=== PATIENT | female | born 1945 | race Caucasian/White ===

== ENCOUNTER 2018-06-03 01:03 | Inpatient (IN) | payer MEDICARE ==
[2018-06-03] MEDS ORDERED: cefTRIAXone\\ROCEPHIN 1 GM VIAL ONE (03:34)
[2018-06-03] MEDS ORDERED: Senokot S 8.6-50 MG TAB PO PRN (03:35)
[2018-06-03] MEDS ORDERED: Levofloxacin 500 mg/D5W 100 ml Premix Bag ONE (03:40)
--- NOTE | 2018-06-03 04:19 | HP ---
CHIEF COMPLAINT: Shortness of breath. HISTORY OF PRESENT ILLNESS: The patient is a 73-year-old female with a history of hypothyroidism, hypertension, COPD, and some sort of leukemia. 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 The patient stated that for the past week she has been short of breath. She actually followed up with her [facility] doctor who had given her a script for Levaquin, however, she took one dose of it and got very weak, so she stopped taking the antibiotic. The patient states that she had subjective fevers. She states that she has been having some shortness of breath on exertion and also cough. She states that her cough has been productive. Denies any chest pain or chest pressure. She states that she kind of stays around in her home due to her immunocompromised state. The patient does not use home oxygen. PAST MEDICAL HISTORY: 1. History of hypertension. 2. COPD. 3. Leukemia. PAST SURGICAL HISTORY: Cholecystectomy, hysterectomy, tubal ligation, left knee repair. SOCIAL HISTORY: She is a former smoker. Denies any alcohol use or drug use currently. She is nonsmoker currently and she is a full code, lives with her family. FAMILY HISTORY: Uncle had some sort of cancer. No history of heart disease or strokes. REVIEW OF SYSTEMS: All negative except for the ones mentioned above in the HPI. PHYSICAL EXAMINATION: VITAL SIGNS: She is afebrile at 98.6. She is 98% initially on room air, respirations are 18, blood pressure 157/82, pulse was 100. GENERAL: She is awake, alert, and oriented x3. Does not appear in any distress. HEENT: Normocephalic, atraumatic. No lymphadenopathy noted. Pupils are equal and reactive to light. LUNGS: Clear to auscultation. She does have some wheezing on her upper lung area with some productive cough noted. CV: S1, S2 present. No murmurs, rubs, or gallops. ABDOMEN: Soft and nontender. Bowel sounds present x2. EXTREMITIES: She does have mild +1 lower extremity edema. Pedal pulses are present x2. NEUROLOGIC: Neurovascular khan, no focal deficit. SKIN: No cuts, lesions, or bruises noted. LABORATORY RESULTS: As of the following; WBCs of 9.2, hemoglobin of 7.3, hematocrit of 22.0. Her platelets are 239. Chemistry; sodium of 136, potassium of 3.6, BUN of 19, creatinine 1.20. Her BNP was 156. Troponins were negative. Her chest x-ray did not indicate any acute abnormalities. ASSESSMENT AND PLAN: The patient is a 73-year-old female who presents to the hospital with shortness of breath. 1. Shortness of breath. This could be secondary to upper respiratory tract infection, most likely bronchitis versus chronic obstructive pulmonary disease exacerbation versus a combination of bronchitis and anemia versus pulmonary emboli. I look through the ER records, the patient was never hypoxic. She was always 95% to 96% on room air. She does however has a very productive cough and she has only slight wheezing in her upper respiratory lung area. I will start her on some DuoNeb. I will treat her prophylactically with antibiotics. She was on Levaquin orally. I believe the dose was too high for this patient. I will start her on 500 daily IV. The patient has allergies to penicillin. She states that she has hives. I do not want to jeopardize her respiratory status since she has a lot of things going on. I will start her on Levaquin. I will also give her some Tessalon Perles for her cough. Her flu swab was negative. I will hold off on the steroids for now. My probability for PE is very low. However, if required, she may have a V/Q scan. 2. Leukocytosis. This is most likely secondary to her underlying malignancy. The patient does not know what type of malignancy she has. 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 3. Anemia. The patient's H and H is significantly low at 7.3. I will type and screen her. We will continue to follow along. If her H and H does drop, she might require some blood transfusion. 4. Hypothyroidism. We will continue her home medications. 5. Deep venous thrombosis prophylaxis. We will put the patient on subcu Lovenox. Job ID: [id number]
[2018-06-03 04:37] VITALS: BMI 27.6
[2018-06-03] MEDS ORDERED: Ondansetron ODT 4 MG TAB PO SCH (05:45)
[2018-06-03] MEDS: Levothyroxine Sodium 25 MCG TAB PO SCH (06:02)
[2018-06-03] MEDS: Enoxaparin Sodium 40 MG/0.4 ML SYRINGE SC SCH (08:53)
[2018-06-03] MEDS: Metoprolol Tartrate 25 MG TAB PO SCH (08:53)
--- NOTE | 2018-06-03 10:39 | PDOC.PN ---
- Subjective Encounter Start Date: 06/03/18 Encounter Start Time: 10:25 Subjective: f/u for dyspnea and suspected bronchitis and ? COPD. Receiving -: Levaquin, Duonebs and O2 via NC. Feels a little better today. - Objective Resuscitation Status - Order Detail: 06/03/18 03:35 Resuscitation Status Routine Resuscitation Status: FULL: Full Resuscitation MAR Reviewed: Yes Vital Signs & Weight: Vital Signs (12 hours) Temp Pulse Resp BP Pulse Ox 06/03/18 08:09 97.8 F 97 20 141/65 H 98 06/03/18 08:00 98 06/03/18 07:27 95 16 97 06/03/18 05:16 99 06/03/18 04:37 98.1 F 93 20 162/76 H 99 Weight Weight 158 lb 5 oz Additional Labs: Microbiology 06/02/18 22:32 Nasal swab Influenza Types A,B Direct EIA - Final Laboratory Tests 06/02/18 06/02/18 06/02/18 22:40 22:40 22:40 WBC 59.2 H* Hgb 7.3 L Hct 22.0 L MCV 98.6 H Plt Count 239 Band Neuts % (Manual) 18 H Sodium 136 Potassium 3.6 Chloride 97 L Carbon Dioxide 27 BUN 19 Creatinine 1.20 H Estimated GFR (MDRD) 44 Glucose 117 H Lactic Acid 1.0 B-Natriuretic Peptide 06/02/18 22:40 WBC Hgb Hct MCV Plt Count Band Neuts % (Manual) Sodium Potassium Chloride Carbon Dioxide BUN Creatinine Estimated GFR (MDRD) Glucose Lactic Acid B-Natriuretic Peptide 156.1 H Radiology Reviewed by me: Yes (PCXR - no acute process) Phys Exam - Physical Examination Constitutional: NAD alert, responsive, pale HEENT: PERRLA, sclera anicteric, oral pharynx no lesions Neck: no nodes, no JVD, supple, full ROM exp wheezes diminished in bases S1, S2 Cardiovascular: RRR, no significant murmur, no rub, gallop Gastrointestinal: soft, non-tender, no distention, positive bowel sounds Musculoskeletal: no edema, pulses present Neurological: normal sensation, moves all 4 limbs Psychiatric: A&O x 3 Skin: normal turgor, cap refill <2 seconds Dx/Plan (1) Acute dyspnea Code(s): R06.00 - DYSPNEA, UNSPECIFIED Status: Acute Comment: Suspect secondary to #2, continue mgmt as outlined below (2) Acute bronchitis Code(s): J20.9 - ACUTE BRONCHITIS, UNSPECIFIED Status: Acute Comment: Continue Levaquin 500mg daily, Duonebs (3) COPD exacerbation Code(s): J44.1 - CHRONIC OBSTRUCTIVE PULMONARY DISEASE W (ACUTE) EXACERBATION Status: Acute Comment: Continue Levaquin, Duonebs, add Prednisone 40mg po daily (4) CLL (chronic lymphocytic leukemia) Code(s): C91.90 - LYMPHOID LEUKEMIA, UNSPECIFIED NOT HAVING ACHIEVED REMISSION Status: Chronic Comment: Confirm home chemotx regimen (5) Anemia due to chemotherapy Code(s): D64.81 - ANEMIA DUE TO ANTINEOPLASTIC CHEMOTHERAPY; T45.1X5A - ADVERSE EFFECT OF ANTINEOPLASTIC AND IMMUNOSUP DRUGS, INIT Status: Chronic Comment: Repeat H/H today, likely will need PRBC's with serial monitoring, no evidence of acute blood loss - Plan continue antibiotics, social media senior associate, respiratory therapy, out of bed/ambulate , DVT proph w/SCDs Stable currently -: Add Prednisone 40mg po daily -: Continue Levaquin 500mg daily -: Check CBC today -: AM lab: BMP, CBC * .
[2018-06-03] MEDS ORDERED: predniSONE 20 MG TAB PO SCH (10:45)
[2018-06-03 11:16] LABS: Hemoglobin 7.2 g/dL (12.0-16.0); Mean Corpuscular HGB CONC 33.1 g/dL (32.0-36.0); Mean Corpuscular Hemoglobin 32.9 pg (27.0-31.0); Mean Corpuscular Volume 99.6 fL (78.0-98.0); Mean Platelet Volume 8.6 fL (7.4-10.4); Platelet Count 236 thou/uL (130-400); RBC Distribution Width 19.3 % (11.5-14.5); Red Blood Cell (RBC) Count 2.19 mill/uL (4.20-5.40); Reflex for Review?? NO; White Blood Cell (WBC) Count 59.3 thou/uL (4.8-10.8)
[2018-06-03 11:57] LABS: Band 23 % (5-11); Differential Comment Blast-Like Cell(s); Eosinophils 3 % (0-10); Lymphocytes 1 % (21-51); MDiff Complete? YES; Metamyelocyte 3 % (0-0); Myelocyte 5 % (0-0); Neutrophil 61 % (42-75); Platelet Morphology Comment Appears Adequate; Polychromasia MODERATE = 3-4 cells (100X) (0-2/hpf)
[2018-06-03] MEDS: Ondansetron ODT 4 MG TAB PO SCH ×2 (13:04→22:00)
[2018-06-03] MEDS: Benzonatate 100 MG CAP PO PRN (20:17)
[2018-06-04] MEDS ORDERED: guaiFENesin/DM ER PO SCH (02:30)
[2018-06-04 05:54] LABS: Hemoglobin 7.8 g/dL (12.0-16.0); Mean Corpuscular Hemoglobin 33.8 pg (27.0-31.0); Mean Corpuscular Volume 99.5 fL (78.0-98.0); Mean Platelet Volume 8.2 fL (7.4-10.4); Platelet Count 253 thou/uL (130-400); RBC Distribution Width 18.6 % (11.5-14.5)
[2018-06-04 06:23] LABS: Band 32 % (5-11); Differential Comment Immature Cell(s); Lymphocytes 6 % (21-51); MDiff Complete? YES; Metamyelocyte 6 % (0-0); Monocytes 4 % (0-10); Myelocyte 5 % (0-0); Neutrophil 46 % (42-75)
[2018-06-04] MEDS: Levothyroxine Sodium 25 MCG TAB PO SCH (06:55)
[2018-06-04] MEDS: Ondansetron ODT 4 MG TAB PO SCH ×3 (06:55→23:06)
[2018-06-04 06:57] LABS: Anion Gap 15 mmol/L (10-20); BUN (Urea Nitrogen) 18 mg/dL (9.8-20.1); Calc. Creatinine Clearance 43 mL/min (70-130); Calcium 8.8 mg/dL (7.8-10.44); Carbon Dioxide 28 mmol/L (23-31); Chloride 97 mmol/L (98-107); Estimated GFR-MDRD 41; Glucose 102 mg/dL (83-110); Potassium 3.5 mmol/L (3.5-5.1); Sodium 136 mmol/L (136-145)
[2018-06-04] MEDS: predniSONE 20 MG TAB PO SCH (08:03)
[2018-06-04] MEDS: Metoprolol Tartrate 25 MG TAB PO SCH (08:03)
[2018-06-04] MEDS: NIFEdipine XL 30 MG TAB PO SCH (08:03)
[2018-06-04] MEDS: Enoxaparin Sodium 40 MG/0.4 ML SYRINGE SC SCH (08:04)
[2018-06-04] MEDS: [UNRECOGNIZED DRUG - REMARK] PO SCH (08:04)
--- NOTE | 2018-06-04 18:22 | PDOC.PN ---
- Subjective Encounter Start Date: 06/04/18 Encounter Start Time: 18:10 Subjective: f/u for bronchitis/dyspnea on Levaquin, Prednisone, Duonebs and -: Mucinex. Feels better overall. No fever, minimally productive cough - Objective Resuscitation Status - Order Detail: 06/03/18 03:35 Resuscitation Status Routine Resuscitation Status: FULL: Full Resuscitation MAR Reviewed: Yes Vital Signs & Weight: Vital Signs (12 hours) Temp Pulse Resp BP BP BP Pulse Ox 06/04/18 13:00 97.6 F 91 20 160/74 H 92 L 06/04/18 12:50 88 20 06/04/18 09:00 98.5 F 89 18 139/70 96 06/04/18 08:03 89 139/70 06/04/18 08:00 96 06/04/18 06:23 98 Weight Admit Weight 158 lb 5 oz Weight 158 lb 5 oz I&O: 06/03/18 06/04/18 06/05/18 06:59 06:59 06:59 Intake Total 600 960 Balance 600 960 Result Diagrams: 06/04/18 05:35 06/04/18 05:35 Additional Labs: Microbiology 06/02/18 22:32 Nasal swab Influenza Types A,B Direct EIA - Final Laboratory Tests 06/02/18 06/02/18 06/02/18 22:40 22:40 22:40 WBC 59.2 H* Hgb 7.3 L Hct 22.0 L MCV 98.6 H Plt Count 239 Band Neuts % (Manual) 18 H Sodium 136 Potassium 3.6 Chloride 97 L Carbon Dioxide 27 BUN 19 Creatinine 1.20 H Estimated GFR (MDRD) 44 Glucose 117 H Lactic Acid 1.0 B-Natriuretic Peptide 06/02/18 22:40 WBC Hgb Hct MCV Plt Count Band Neuts % (Manual) Sodium Potassium Chloride Carbon Dioxide BUN Creatinine Estimated GFR (MDRD) Glucose Lactic Acid B-Natriuretic Peptide 156.1 H Phys Exam - Physical Examination Constitutional: NAD alert, pale HEENT: PERRLA, sclera anicteric, oral pharynx no lesions Neck: no nodes, no JVD, supple, full ROM few rhonchi o/w clear S1, S2 Cardiovascular: RRR, no significant murmur, no rub, gallop Gastrointestinal: soft, non-tender, no distention, positive bowel sounds Musculoskeletal: no edema, pulses present Neurological: normal sensation, moves all 4 limbs Psychiatric: A&O x 3 Skin: normal turgor, cap refill <2 seconds Dx/Plan (1) Acute dyspnea Code(s): R06.00 - DYSPNEA, UNSPECIFIED Status: Acute Comment: Suspect secondary to #2, continue mgmt as outlined below, weaned off O2 (2) Acute bronchitis Code(s): J20.9 - ACUTE BRONCHITIS, UNSPECIFIED Status: Acute Comment: Continue Levaquin 500mg daily, Duonebs, Prednisone, Mucinex (3) COPD exacerbation Code(s): J44.1 - CHRONIC OBSTRUCTIVE PULMONARY DISEASE W (ACUTE) EXACERBATION Status: Acute Comment: Continue Levaquin, Duonebs, add Prednisone 40mg po daily (4) CLL (chronic lymphocytic leukemia) Code(s): C91.90 - LYMPHOID LEUKEMIA, UNSPECIFIED NOT HAVING ACHIEVED REMISSION Status: Chronic Comment: Confirm home chemotx regimen (5) Anemia due to chemotherapy Code(s): D64.81 - ANEMIA DUE TO ANTINEOPLASTIC CHEMOTHERAPY; T45.1X5A - ADVERSE EFFECT OF ANTINEOPLASTIC AND IMMUNOSUP DRUGS, INIT Status: Chronic Comment: Stable, serial H/H monitoring, no evidence of acute blood loss - Plan continue antibiotics, respiratory therapy, out of bed/ambulate, DVT proph w/SCDs Stable overall -: Continue Levaquin, Prednisone, Mucinex -: OOB/ambulate -: Add Areli almeida -: AM lab: CBC * .
[2018-06-04] MEDS: guaiFENesin/DM ER PO SCH (22:58)
[2018-06-05] MEDS: Ondansetron ODT 4 MG TAB PO SCH ×2 (05:57→13:53)
[2018-06-05] MEDS: Levothyroxine Sodium 25 MCG TAB PO SCH (05:57)
[2018-06-05 06:39] LABS: Hemoglobin 7.4 g/dL (12.0-16.0); Mean Corpuscular HGB CONC 32.9 g/dL (32.0-36.0); Mean Corpuscular Hemoglobin 33.2 pg (27.0-31.0); Mean Platelet Volume 8.1 fL (7.4-10.4); Platelet Count 261 thou/uL (130-400); RBC Distribution Width 19.1 % (11.5-14.5); Red Blood Cell (RBC) Count 2.23 mill/uL (4.20-5.40); White Blood Cell (WBC) Count 72.4 thou/uL (4.8-10.8)
[2018-06-05 06:44] LABS: Band 37 % (5-11); Eosinophils 1 % (0-10); Lymphocytes 7 % (21-51); MDiff Complete? YES; Metamyelocyte 3 % (0-0); Myelocyte 3 % (0-0); Neutrophil 49 % (42-75)
[2018-06-05] MEDS: guaiFENesin/DM ER PO SCH (08:04)
[2018-06-05] MEDS: Metoprolol Tartrate 25 MG TAB PO SCH (08:04)
[2018-06-05] MEDS: Benzonatate 100 MG CAP PO PRN (08:04)
[2018-06-05] MEDS: predniSONE 20 MG TAB PO SCH (08:05)
[2018-06-05] MEDS: NIFEdipine XL 30 MG TAB PO SCH (08:05)
[2018-06-05] MEDS: Enoxaparin Sodium 40 MG/0.4 ML SYRINGE SC SCH (08:06)
[2018-06-05 08:07] VITALS: BP 140/74
[2018-06-05] MEDS: [UNRECOGNIZED DRUG - REMARK] PO SCH (08:07)
[2018-06-05 09:02] VITALS: TEMP 97.6
--- NOTE | 2018-06-05 14:10 | PQF ---
KONG NAPOLES TONI MD [id number] CLINICAL DOCUMENTATION IMPROVEMENT CLARIFICATION FORM: ICD-10 Updated PLEASE DO AN ADDENDUM TO THE PROGRESS NOTE WITH ANY DOCUMENTATION UPDATES OR ADDITIONS AND CARRY THROUGH TO DC SUMMARY. THANK YOU. Date: 06/05/18 ATTN: Dr. Hyde Please exercise your independent, professional judgment in responding to the clarification form. Clinical indicators are provided on the bottom of this form for your review Please check appropriate box(s): [ X ] Protein Calorie Malnutrition: [ X] Mild [ ] Other Malnutrition (please specify) __ [ ] Other diagnosis [ ] Unable to determine In addition, please specify: Present on Admission (POA): [ X ] Yes [ ] No [ ] Unable to determine CLINICAL INDICATORS - SIGNS / SYMPTOMS / LABS Weight Loss--> 06/05 RD: 23% WEIGHT LOSS SINCE STARTING CHEMO 2.5 YEARS AGO RISK FACTORS Chronic illness CLL, anemia d/t chemo 06/03 IM TREATMENT: Dietary consult 06/05 orders Nutritional supplements--> Ensure Enlive BID Moderate Malnutrition (in acute illness) Energy Intake: <75% of estimated energy requirement for > 7 days Weight Loss: 1-2%/1 week; 5%/ 1 month; 7.5%/3 months Other: mild body fat loss; mild muscle mass loss; mild fluid accumulation; Severe Malnutrition (in acute illness) Energy Intake: < 50% of estimated energy requirement for > 5 days Weight Loss: >1-2%/1 week; >5%/1 month; >7.5%/3 months Other: moderate body fat loss; moderate muscle mass loss; moderate- severe fluid accumulation; measurably reduced automotive upholsterer strength Moderate Malnutrition (in chronic illness) Energy Intake: <75% of estimated energy requirement for >1 month Weight Loss: 5%/1 month; 7.5%/3 months; 10%/6 months; 20%/1 year Other: mild body fat loss; mild muscle mass loss; mild fluid accumulation Severe Malnutrition (in chronic illness) Energy Intake: <75% of estimated energy requirement for >1 month Weight Loss: >5%/1 month; >7.5%/3 months; >10%/6 months; >20%/1 year Other: severe body fat loss; severe muscle mass loss; severe fluid accumulation ; measurably reduced automotive upholsterer strength Thank you, Saba Guido RN, CCDS (This form is maintained as a part of the permanent medical record) 2015 [employer] All Rights Reserved Saba Guido RN, BSN, CCDS [email or web address]
--- NOTE | 2018-06-05 16:03 | PDOC.PN ---
- Subjective Encounter Start Date: 06/05/18 Encounter Start Time: 16:01 Ms. Quesada was seen today in follow-up of COPD exacerbation. she says she is feeling better. She is less short of breath. - Objective Resuscitation Status - Order Detail: 06/03/18 03:35 Resuscitation Status Routine Resuscitation Status: FULL: Full Resuscitation MAR Reviewed: Yes Vital Signs & Weight: Vital Signs (12 hours) Temp Pulse Resp BP BP Pulse Ox 06/05/18 12:12 88 18 06/05/18 08:05 97 140/74 06/05/18 08:00 97.6 F 97 18 140/74 92 L 06/05/18 06:16 96 19 Weight Admit Weight 158 lb 5 oz Weight 158 lb 5 oz I&O: 06/04/18 06/05/18 06/06/18 06:59 06:59 06:59 Intake Total 600 960 237 Balance 600 960 237 Result Diagrams: 06/05/18 06:15 06/04/18 05:35 Phys Exam - Physical Examination HEENT: PERRLA Respiratory: wheezing present Cardiovascular: RRR, no significant murmur, no rub Gastrointestinal: soft, non-tender, no distention, positive bowel sounds Musculoskeletal: no edema, pulses present Dx/Plan (1) Acute and chronic respiratory failure Code(s): J96.20 - ACUTE AND CHR RESP FAILURE, UNSP W HYPOXIA OR HYPERCAPNIA Status: Acute (2) COPD exacerbation Code(s): J44.1 - CHRONIC OBSTRUCTIVE PULMONARY DISEASE W (ACUTE) EXACERBATION Status: Acute Comment: Continue Levaquin, Duonebs, add Prednisone 40mg po daily (3) CLL (chronic lymphocytic leukemia) Code(s): C91.90 - LYMPHOID LEUKEMIA, UNSPECIFIED NOT HAVING ACHIEVED REMISSION Status: Chronic Comment: Confirm home chemotx regimen - Plan * Acute on chronic respiratory failure- improved * COPD- improved * She is stable for discharge home..
--- NOTE | 2018-06-05 18:56 | DIS ---
DATE OF ADMISSION: 06/03/2018 DATE OF DISCHARGE: 06/05/2018 DISCHARGE DISPOSITION: Home. PRIMARY DISCHARGE DIAGNOSES: 1. Acute on chronic respiratory failure. 2. Chronic obstructive pulmonary disease exacerbation. 3. Hypertension. 4. Leukemia. DISCHARGE MEDICATIONS: Include; 1. Prednisone 40 mg daily for 3 days. 2. Levaquin 500 mg p.o. daily for 5 days. 3. Breo Ellipta 200/25 mcg one inhalation daily. 4. Zofran 8 mg q.8 as needed. 5. Procardia XL 30 mg daily. 6. Lopressor 12.5 mg daily. 7. Levothyroxine 25 mcg p.o. daily. CODE STATUS: Full code. ALLERGIES: TO ASPIRIN, IODINE, AND PENICILLIN. HOSPITAL COURSE: Ms. Quesada is a pleasant 73-year-old female, who presented to the emergency room with complaints of shortness of breath. She was evaluated in the ER and she was found to be suffering from a COPD exacerbation. She was admitted, started on antibiotics as well as DuoNeb and steroids. She improved over the course of the next couple of days. She was stable enough to be discharged home on 06/05/2018. It was also noted that she had significant leukocytosis as well as anemia, however, this is being attributed to her leukemia. Job ID: [id number]
== END 2018-06-05 16:57 | disposition home or self-care (01) | DRG 189 ==
LOC: ERS 01:03 → ONC 02:50
PROVIDERS: ADMIT Internal Medicine; ATTEND Internal Medicine
DX: J96.20 Acute and chronic respiratory failure, unspecified whether with hypoxia or hypercapnia (principal); J44.1 Chronic obstructive pulmonary disease with (acute) exacerbation; E44.1 Mild protein-calorie malnutrition; C91.90 Lymphoid leukemia, unspecified not having achieved remission; J44.0 Chronic obstructive pulmonary disease with (acute) lower respiratory infection; E03.9 Hypothyroidism, unspecified; I10 Essential (primary) hypertension; Z68.27 Body mass index [BMI] 27.0-27.9, adult; D64.81 Anemia due to antineoplastic chemotherapy; J20.9 Acute bronchitis, unspecified; Z88.0 Allergy status to penicillin; Z88.8 Allergy status to other drugs, medicaments and biological substances; Z87.891 Personal history of nicotine dependence; Z90.49 Acquired absence of other specified parts of digestive tract
CPT/HCPCS: 36415; 80048; 85007; 85025; 85027; 94640; 96365; J0696; J1650; J1956; J7512; J7620; Q0162

== ENCOUNTER 2019-01-08 10:35 | Day surgery (SDC) | payer MEDICARE ==
[2019-01-08] MEDS ORDERED: diphenhydrAMINE 25 MG CAP PO SCH (11:15)
[2019-01-08] MEDS ORDERED: Acetaminophen 500 MG TAB PO SCH (11:15)
[2019-01-08 11:25] VITALS: BMI 23.6
[2019-01-08] MEDS ORDERED: Furosemide 20 MG/2 ML VIAL SLOW IVP SCH (16:00)
[2019-01-08 21:22] VITALS: BP 151/73; TEMP 97.8
== END 2019-01-08 21:24 | disposition home or self-care (01) ==
LOC: ONC/OP 10:35 → ONC 10:39 → ONC/OP 18:04
PROVIDERS: ATTEND Internal Medicine Hematology & Oncology
PROC: 30233R1 Transfusion of Nonautologous Platelets into Peripheral Vein, Percutaneous Approach (ICD-10-PCS; principal; 2019-01-08)
PROC: 30233N1 Transfusion of Nonautologous Red Blood Cells into Peripheral Vein, Percutaneous Approach (ICD-10-PCS; 2019-01-08)
DX: D64.9 Anemia, unspecified (principal); D69.6 Thrombocytopenia, unspecified; Z88.0 Allergy status to penicillin; Z88.8 Allergy status to other drugs, medicaments and biological substances; Z91.041 Radiographic dye allergy status
CPT/HCPCS: 36430; 82746; 84132; 86850; 86900; 86901; J1940; P9016; Q0163

== ENCOUNTER 2019-01-14 10:59 | Outpatient (CLI) | payer MEDICARE ==
--- NOTE | 2019-01-14 11:40 | ULT ---
EXAM: Right lower extremity venous Doppler HISTORY: Right upper extremity pain and swelling in a patient with right upper extremity PICC line in place. FINDINGS: Grayscale, color-flow, Doppler evaluation, spectral analysis of the right upper extremity venous stru ctures is performed with 2-D imaging. There is a tubular echogenic structure seen in the right upper extremity basilic, axillary, and subcl connor veins with absence of flow, increased luminal echogenicity and decreased lumen compressibility involving the right basilic, axillary, and subclavian veins consistent with occlusive thrombus in these venous structures. There is normal luminal compressibility and flow in the right internal jugular vein. There is normal luminal compressibility and flow seen within the right upper extremity basilic vein proximal to site of PICC line insertion. There is also normal luminal compressibility and flow within the right u pper extremity cephalic vein, brachial, radial, and ulnar veins. IMPRESSION: 1. Right upper extremity PICC line in place within the right upper extremity basilic vein which exten ds into the axillary and subclavian veins. There is occlusive thrombus surrounding the PICC line within the right upper extremity basilic with occlusive thrombus also present in the right upper extr emity axillary and subclavian veins compatible with DVT. 2. Above findings discussed with Dr. Ramirez on 01/14/2019 at 1136 hours.
== END 2019-01-14 11:00 | disposition home or self-care (01) ==
LOC: SCSULT 10:59
PROVIDERS: ATTEND Internal Medicine Hematology & Oncology
DX: R60.0 Localized edema (principal); M79.601 Pain in right arm; C96.21 Aggressive systemic mastocytosis; D46.A Refractory cytopenia with multilineage dysplasia; I82.611 Acute embolism and thrombosis of superficial veins of right upper extremity

== ENCOUNTER 2019-01-22 18:48 | Inpatient (IN) | payer MEDICARE ==
[2019-01-22 20:21] LABS: #Eosinphils 0.1 thou/uL (0.0-0.7); #Lymphocytes 0.6 thou/uL (1.20-3.40); #Monocytes 0.1 thou/uL (0.11-0.59); %Basophils 1.3 % (0.0-1.0); %Eosinophils 6.2 % (0.0-10.0); %Lymphocytes 32.9 % (21.0-51.0); %Monocytes 7.8 % (0.0-10.0); %Neutrophils 51.9 % (42.0-75.0); ALT (SGPT) 82 U/L (8-55); AST (SGOT) 93 U/L (5-34); Albumin 4.2 g/dL (3.4-4.8); Alkaline Phosphatase 802 U/L (40-110); Anion Gap 19 mmol/L (10-20); BUN (Urea Nitrogen) 48 mg/dL (9.8-20.1); Bilirubin, Total 0.9 mg/dL (0.2-1.2); Calc. Creatinine Clearance 0 mL/min (70-130); Calcium 9.4 mg/dL (7.8-10.44); Carbon Dioxide 23 mmol/L (23-31); Chloride 96 mmol/L (98-107); Estimated GFR-MDRD 40; Glucose 111 mg/dL (83-110); Hemoglobin 6.6 g/dL (12.0-16.0); Mean Corpuscular HGB CONC 36.7 g/dL (32.0-36.0); Mean Corpuscular Hemoglobin 34.8 pg (27.0-31.0); Mean Corpuscular Volume 94.7 fL (78.0-98.0); Platelet Count 50 thou/uL (130-400); Platelet Morphology Comment Appears Decreased; Potassium 3.7 mmol/L (3.5-5.1); Protein, Total 7.2 g/dL (6.0-8.3); RBC Distribution Width 16.8 % (11.5-14.5); Red Blood Cell (RBC) Count 1.91 mill/uL (4.20-5.40); Sodium 134 mmol/L (136-145); White Blood Cell (WBC) Count 1.9 thou/uL (4.8-10.8)
--- NOTE | 2019-01-22 21:14 | RAD ---
Exam: Chest one view HISTORY:Dyspnea Comparison: 06/02/2018 FINDINGS: Cardiac silhouette:Enlarged cardiac silhouette. Aorta: Unremarkable Pulmonary vessels: Slightly prominent Costophrenic angles: Clear LUNGS: No masses or consolidation. Chronic changes of the lung parenchyma Lines and tubes: Right-sided PICC line terminates in the region of the superior vena cava. Pneumothorax: None Osseous abnormalities: None IMPRESSION: Cardiac megaly. No evidence of congestive heart failure. No acute cardiopulmonary process .
[2019-01-22 21:31] LABS: INR-International Normal Ratio 2.1; PTT 44.3 SEC (22.9-36.1); Prothrombin Time 23.3 SEC (12.0-14.7)
[2019-01-23 00:51] VITALS: BMI 22.6
--- NOTE | 2019-01-23 03:47 | PDOC.HHP ---
Hospitalist HPI - History of Present Illness Abnormal labwork History of Present Illness: Patient is a 73 year old female with PMH of cancer who was referred to ED by oncologist Dr Ramirez for anemia on outpatient lab work. Patient has a history of cancer, from what I can gather this was originally mastocytosis which was treated with an experimental immunotherapy medication which induced cancer to go into remission, but possible also resulted in patient developing myelodysplastic syndrome, for which she sees Dr Ramirez and gets periodic transfusions. Her last transfusion was 3 weeks ago. Patient went for labwork and was told to go to ED, here hgb was 6.6, patient to be admitted for anemia. She is symptomatic, with shortness of breath and fatigue. Her platelets are 50k currently, no bleeding has been noted, patient denies red or black stools. Na 134, LFTs elevated in ED. Also, patient is with , he reports that patient mental status has become worse in last month or so and he was told she had dementia, was going to bring patient to a new PCP for appointment tomorrow and requests if workup for dementia can be done this admission instead. Hospitalist ROS - Review of Systems Constitutional: reports: weakness, malaise. denies: fever, chills, sweats Eyes: denies: vision change, redness ENT: denies: mouth swelling, throat pain, throat swelling Respiratory: reports: shortness of breath. denies: cough, dry, wheezing Cardiovascular: denies: chest pain, palpitations Gastrointestinal: denies: nausea, vomiting, abdominal pain, diarrhea, constipation Genitourinary: denies: dysuria, frequency Musculoskeletal: denies: neck pain, shoulder pain Skin: denies: rash, lesions Neurological: denies: weakness, numbness, incoordination All other systems reviewed; all pertinent +/- noted in HPI/Subj Hospitalist History - Past Medical History Other Medical History: HTN COPD leukemia/MDS or other cancer treated by Dr Ramirez - Past Surgical History Other Surgical History: cholecystectomy hysterectomy tubal ligation L knee repair - Family History Other Family History: uncle with cancer no heart disease or strokes - Social History Smoking Status: Former smoker Alcohol: reports: None Drugs: reports: none - Exam General Appearance: NAD, awake alert General - other findings: appears fatigued, lets do all talking Eye: PERRL, anicteric sclera ENT: normocephalic atraumatic, moist mucosa Neck: supple, symmetric, no JVD Heart: RRR, no murmur, no gallops, no rubs Respiratory: CTAB, no wheezes, no rales, no ronchi Gastrointestinal: soft, non-tender, non-distended, normal bowel sounds Extremities: no cyanosis, no clubbing, 1+ LE edema Skin: no lesions, no rashes Neurological: cranial nerve grossly intact, normal sensation to touch, no weakness, no focal deficits Musculoskeletal: normal tone, normal strength Psychiatric: normal affect, normal behavior, lethargic Hospitalist Results - Labs Result Diagrams: 01/22/19 19:49 01/22/19 19:49 Lab results: WBC 1.9 thou/uL (4.8-10.8) L 01/22/19 19:49 Hgb 6.6 g/dL (12.0-16.0) L 01/22/19 19:49 Hct 18.1 % (36.0-47.0) L 01/22/19 19:49 MCV 94.7 fL (78.0-98.0) 01/22/19 19:49 Plt Count 50 thou/uL (130-400) L 01/22/19 19:49 Neutrophils % 51.9 % (42.0-75.0) 01/22/19 19:49 Sodium 134 mmol/L (136-145) L 01/22/19 19:49 Potassium 3.7 mmol/L (3.5-5.1) 01/22/19 19:49 Chloride 96 mmol/L (98-107) L 01/22/19 19:49 Carbon Dioxide 23 mmol/L (23-31) 01/22/19 19:49 BUN 48 mg/dL (9.8-20.1) H 01/22/19 19:49 Creatinine 1.29 mg/dL (0.6-1.1) H 01/22/19 19:49 Glucose 111 mg/dL (83-110) H 01/22/19 19:49 Calcium 9.4 mg/dL (7.8-10.44) 01/22/19 19:49 Total Bilirubin 0.9 mg/dL (0.2-1.2) 01/22/19 19:49 AST 93 U/L (5-34) H 01/22/19 19:49 ALT 82 U/L (8-55) H 01/22/19 19:49 Alkaline Phosphatase 802 U/L (40-110) H 01/22/19 19:49 Troponin I 0.016 ng/mL (< 0.028) 01/22/19 21:15 Serum Total Protein 7.2 g/dL (6.0-8.3) 01/22/19 19:49 Albumin 4.2 g/dL (3.4-4.8) 01/22/19 19:49 Hospitalist H&P A/P - Plan Plan: Patient is a 73 year old female with PMH leukemia, MDS, HTN, COPD admitted for: # anemia - transfuse 2 units, consult Dr Ramirez for AM, trend CBC daily - takes lasix at home, will give 1 dose IV now, monitor for overload when recieving blood # thrombocytopenia - SCDs for DVT ppx, avoid anticoagulation # lethargy/dementia - been happening for a few weeks, is concerned - medication list reviewed, will hold olanzipine - send labs: TSH, B12, UA. also CT head ordered and workup of elevated LFTs as below - monitor for fever, will requests blood cultures with AM labs but no indication to start empiric antibiotics - PT/OT eval ordered, case management consult in case rehab needed # history of leukemia (mastocytosis) now appears to be MDS after cancer in remission but immunotherapy side effect at [facility] - continue valtrex, voriconazole - consult Dr Ramirez - home med list with some confusion, unsure if patinet on daily steroid or not, will request nursing to verify home meds with Dr Ramirez office in AM # elevated LFTs - high ALP, elevated AST and ALT but to a lesser degree - acuute hepatitis panel and US abdomen ordered # mildly elevated Cr and mild decreased Na - trend BMP and investigate if worsen
[2019-01-23] MEDS ORDERED: traMADol HCl 50 MG TAB PO PRN (04:15)
[2019-01-23] MEDS ORDERED: HYDROcodone/Acetaminophen 5/325 mg Tablet PO PRN (04:30)
[2019-01-23] MEDS ORDERED: Bisacodyl 5 MG TAB PO PRN (04:30)
[2019-01-23] MEDS ORDERED: Acetaminophen 325 MG TAB PO PRN (04:30)
[2019-01-23] MEDS ORDERED: Bisacodyl 10 MG SUPP PR PRN (04:30)
[2019-01-23] MEDS ORDERED: Furosemide 20 MG/2 ML VIAL SLOW IVP SCH (04:45)
[2019-01-23 05:56] LABS: Anion Gap 13 mmol/L (10-20); BUN (Urea Nitrogen) 41 mg/dL (9.8-20.1); Calc. Creatinine Clearance 43 mL/min (70-130); Carbon Dioxide 26 mmol/L (23-31); Chloride 97 mmol/L (98-107); Estimated GFR-MDRD 54; Glucose 98 mg/dL (83-110); Magnesium 1.8 mg/dL (1.6-2.6); Phosphorus 4.1 mg/dL (2.3-4.7); Potassium 3.3 mmol/L (3.5-5.1); Sodium 133 mmol/L (136-145)
[2019-01-23 06:09] LABS: Band 8 % (5-11); Eosinophils 10 % (0-10); Hemoglobin 7.2 g/dL (12.0-16.0); Lymphocytes 46 % (21-51); MDiff Complete? YES; Mean Corpuscular HGB CONC 35.2 g/dL (32.0-36.0); Mean Corpuscular Hemoglobin 30.6 pg (27.0-31.0); Mean Platelet Volume 11.8 fL (7.4-10.4); Monocytes 4 % (0-10); Neutrophil 32 % (42-75); Platelet Count 34 thou/uL (130-400); RBC Distribution Width 20.2 % (11.5-14.5); Red Blood Cell (RBC) Count 2.35 mill/uL (4.20-5.40)
[2019-01-23] MEDS: Levothyroxine Sodium 25 MCG TAB PO SCH (06:10)
[2019-01-23 06:31] LABS: HBSAg Index 0.21 S/CO (0-0.99); Hep B Surf Ag Non-Reactive S/CO (NonReactive)
[2019-01-23 06:32] LABS: Hep A IgM AB Non-Reactive (NonReactive); Hep A IgM S/CO 0.06 S/CO (0-0.79); Hep C IgG Ab Non-Reactive (NonReactive); Hep C Index 0.07 S/CO (0-0.79)
[2019-01-23 06:34] LABS: HBCM Index 0.06 S/CO (0-0.79); Hepatitis B Core IgM Abs Non-Reactive (NonReactive)
[2019-01-23 06:37] LABS: Vitamin B12 1704 pg/mL (211-911)
[2019-01-23 07:27] LABS: Thyroid Stimulating Hormone 3.6176 uIU/mL (0.35-4.94)
[2019-01-23] MEDS: Mometasone/Formoterol 120 PUFF INHALER INH SCH ×2 (07:40→19:44)
--- NOTE | 2019-01-23 08:25 | ULT ---
RIGHT UPPER QUADRANT ULTRASOUND: HISTORY: Elevated LFTs. FINDINGS: Minimally coarse increased liver echogenicity. Status post cholecystectomy. Common bile duct 0.5 cm . A small amount of intraperitoneal fluid adjacent to the liver. Somewhat small right kidney with i ncreased cortical echogenicity, evidence for nonspecific chronic renal disease. IMPRESSION: Somewhat altered coarse liver echogenicity. Status post cholecystectomy. Somewhat small right kidne y with increased cortical echogenicity concerning for nonspecific chronic renal disease. Status post cholecystectomy. POS: TPC
--- NOTE | 2019-01-23 09:13 | CT ---
Exam: Head CT without contrast HISTORY: Lethargy. COMPARISON: 01/18/2018 FINDINGS: Hemorrhage: No intraparenchymal hemorrhage or extra-axial hematoma. Brain parenchyma: Cortical marcelino-white matter differentiation is preserved. No mass effect or midline shift. Basilar cisterns are patent.White matter hypodensities due to chronic small vessel ischemic change. Ventricular system: Ventricles and sulci are patent and symmetric. Calvarium: Intact. Sinuses and mastoid air cells: Adequate aeration. IMPRESSION: No acute intracranial process.
[2019-01-23] MEDS: Furosemide 40 MG TAB PO SCH ×2 (09:19→21:15)
[2019-01-23] MEDS: NIFEdipine XL 30 MG TAB PO SCH (09:20)
[2019-01-23] MEDS: valACYclovir 500 MG TAB PO SCH (09:21)
[2019-01-23] MEDS: Voriconazole 50 MG TAB PO SCH ×2 (09:22→21:15)
[2019-01-23] MEDS: Cefepime 2 GM in Sodium Chloride 0.9% 100 ML IVPB SCH ×2 (10:12→21:15)
[2019-01-23] MEDS: Vancomycin HCl 750 MG in Sodium Chloride 0.9% 250 ML 250 ML IVPB SCH (10:48)
--- NOTE | 2019-01-23 11:59 | PDOC.HOSPP ---
- Subjective Encounter Date: 01/23/19 Encounter Time: 09:45 Subjective: Expresses no specific complaint.. - Objective Vital Signs & Weight: Vital Signs (12 hours) Temp Pulse Pulse Resp BP BP BP 01/23/19 09:20 90 139/73 01/23/19 08:01 98.0 F 80 16 163/87 H 01/23/19 08:00 98.0 F 80 16 163/87 H 01/23/19 05:12 98.3 F 90 17 145/76 H 01/23/19 04:50 97.8 F 97 18 130/75 01/23/19 04:00 97.6 F 94 18 133/77 01/23/19 00:30 98.2 F 104 H 24 H 136/70 Pulse Ox 01/23/19 09:20 01/23/19 08:01 95 01/23/19 08:00 95 01/23/19 05:12 99 01/23/19 04:50 98 01/23/19 04:00 99 01/23/19 00:30 95 Weight Weight 123 lb 14.4 oz I&O: 01/22/19 01/23/19 01/24/19 06:59 06:59 06:59 Intake Total 750 350 Balance 750 350 Result Diagrams: 01/23/19 04:27 01/23/19 04:27 Hospitalist ROS - Medication Medications: Active Medications Generic Name Dose Route Start Last Admin Trade Name Freq PRN Reason Stop Dose Admin Furosemide 40 mg 01/23/19 09:00 01/23/19 09:19 Lasix PO 40 mg BID ABE Administration Vancomycin HCl 750 mg/ Sodium 250 mls @ 250 mls/hr 01/23/19 11:00 01/23/19 10 :48 Chloride IVPB 250 mls 1100 ABE Administration Cefepime HCl 2 gm/ Sodium 100 mls @ 100 mls/hr 01/23/19 10:00 01/23/19 10:12 Chloride IVPB 100 mls Q12H ABE Administration Levothyroxine Sodium 25 mcg 01/23/19 06:00 01/23/19 06:10 Synthroid PO 25 mcg 0600 ABE Administration Mometasone Furoate/Formoterol Fumar 2 puff 01/23/19 06:30 01/23/19 07:40 Dulera 100 Mcg/5 Mcg Inhaler INH 2 puff BID-RT ABE Administration Nifedipine 30 mg 01/23/19 09:00 01/23/19 09:20 Procardia Xl PO 30 mg DAILY ABE Administration Pantoprazole Sodium 40 mg 01/23/19 09:00 01/23/19 09:21 Protonix PO 40 mg DAILY ABE Administration Valacyclovir HCl 500 mg 01/23/19 09:00 01/23/19 09:21 Valtrex PO 500 mg DAILY ABE Administration Voriconazole 300 mg 01/23/19 09:00 01/23/19 09:22 Vfend PO 300 mg BID ABE Administration - Exam General Appearance: NAD Neck: no JVD Heart: RRR Respiratory: CTAB Gastrointestinal: soft Extremities: no edema (+varicous veins) Neurological: no weakness Psychiatric: normal behavior Hosp A/P (1) Pancytopenia Code(s): D61.818 - OTHER PANCYTOPENIA Status: Acute Plan: Oncology to see.. (2) Dementia Code(s): F03.90 - UNSPECIFIED DEMENTIA WITHOUT BEHAVIORAL DISTURBANCE Status: Acute (3) History of leukemia Code(s): Z85.6 - PERSONAL HISTORY OF LEUKEMIA Status: Acute (4) Elevated liver enzymes Code(s): R74.8 - ABNORMAL LEVELS OF OTHER SERUM ENZYMES Status: Acute (5) Hyponatremia Code(s): E87.1 - HYPO-OSMOLALITY AND HYPONATREMIA Status: Acute Plan: mild. (6) CLL (chronic lymphocytic leukemia) Code(s): C91.90 - LYMPHOID LEUKEMIA, UNSPECIFIED NOT HAVING ACHIEVED REMISSION Status: Chronic (7) Elevated serum creatinine Code(s): R79.89 - OTHER SPECIFIED ABNORMAL FINDINGS OF BLOOD CHEMISTRY Status : Acute Plan: Decreasing. Most likely resolving ATN - Plan On broad spectrum antibiotics.. f/u cbc. f/u with Oncology.
--- NOTE | 2019-01-23 21:08 | CON ---
DATE OF CONSULTATION: REASON FOR CONSULTATION: Myelodysplastic syndrome. HISTORY OF PRESENT ILLNESS: Ms. Quesada is a pleasant 73-year-old female with myelodysplastic syndrome, systemic mastocytosis and dementia, who is currently receiving Dacogen chemotherapy. She presented yesterday to our clinic for routine lab. Her CBC showed a white count of 1.3, hemoglobin of 5.9, and a platelet count of 44,000. She was sent to the emergency room for transfusion. The patient has been very lethargic and lost 10 pounds over the last week or so. She has had a decrease in her cognition. In the emergency room, she had acute kidney injury with a creatinine of 1.29 and elevated LFTs. She was started on IV fluids and admitted. She has received 2 units of packed RBCs with improvement in her hemoglobin to 7.2. She underwent an abdominal ultrasound, which showed no concerning issues. She also had a brain CT, which was negative for acute findings. Over the course of the last 24 hours, she has improved. She is seen at bedside with her . She denies any complaints other than sleeping poorly last night. PAST MEDICAL HISTORY: 1. Systemic mastocytosis. 2. Myelofibrosis. 3. Myelodysplastic syndrome. 4. Hypertension, COPD, hypothyroidism, coronary artery disease, hyperlipidemia, dementia, arthritis. PAST SURGICAL HISTORY: 1. Cholecystectomy. 2. Bone marrow biopsies. ALLERGIES: TO BETADINE AND PENICILLIN. HOME MEDICATIONS: 1. Eliquis. 2. Furosemide. 3. Levothyroxine. 4. Levaquin. 5. Nifedipine. 6. Olanzapine. 7. Protonix. 8. . 9. Zofran. 10. Valacyclovir. FAMILY HISTORY: Noncontributory. SOCIAL HISTORY: , has 2 children. Lives with her spouse. No alcohol, tobacco, or illicit drug use. REVIEW OF SYSTEMS: Positive for fatigue and sleeping poorly. PHYSICAL EXAMINATION: VITAL SIGNS: Temperature is 98.0, pulse is 97, respiratory rate 16, BP is 111/60. She is 94% on room air. GENERAL: This is a frail female, in no acute distress. HEENT: Normocephalic, atraumatic. Pupils are equal and reactive to light. NECK: Supple. CV: Regular rate and rhythm. LUNGS: Diminished throughout. ABDOMEN: Soft and nontender. Bowel sounds are positive. EXTREMITIES: No clubbing or cyanosis. SKIN: No rash. She has a right PICC line. HEMATOLOGICAL: She has scattered ecchymosis. NEUROLOGIC: She is nonfocal. PSYCHIATRIC: She is alert and appropriate. PERTINENT LABS AND X-RAYS: Current WBC is 1, hemoglobin 7.2, hematocrit 20.5, platelet count is 34,000, she got 32% neutrophils, 8% bands, 46% lymphocytes. PT is 23.3, INR is 2.1, and PTT is 44.3. Sodium is 133, potassium 3.3, chloride , CO2 is 26, BUN is 41, creatinine 1, calcium is 9, phosphorus 4.1, magnesium 1.8, bilirubin 0.9, AST is 93, ALT is 82, alkaline phosphatase 802. Serum total protein 7.2, albumin 4.2, globulin 3.0. B12 is 1704. Hepatitis panel is negative. Radiology per HPI. ASSESSMENT: 1. Myelofibrosis/myelodysplastic syndrome. 2. Severe symptomatic anemia. 3. Acute kidney injury, likely due to dehydration and volume depletion. DISCUSSION: The patient has improved with blood transfusion and IV fluids. She is on broad-spectrum antibiotics, but has been afebrile. Recommend stopping those. She would like to go home. I would recheck her CBC in the morning and if okay, let her go home to follow up in our clinic next week for treatment of Dacogen. Her Eliquis has been held due to low platelet count. I would continue to hold them until they are greater than 50. Job ID: [id number]
[2019-01-24 04:15] LABS: Anion Gap 12 mmol/L (10-20); BUN (Urea Nitrogen) 36 mg/dL (9.8-20.1); Calc. Creatinine Clearance 47 mL/min (70-130); Carbon Dioxide 33 mmol/L (23-31); Chloride 96 mmol/L (98-107); Estimated GFR-MDRD 60; Potassium 2.8 mmol/L (3.5-5.1); Sodium 138 mmol/L (136-145)
[2019-01-24 04:16] LABS: ALT (SGPT) 65 U/L (8-55); AST (SGOT) 57 U/L (5-34); Albumin 3.9 g/dL (3.4-4.8); Alkaline Phosphatase 761 U/L (40-110); Bilirubin, Direct 0.6 mg/dL (0.1-0.3); Bilirubin, Total 1.2 mg/dL (0.2-1.2); Calcium 9.4 mg/dL (7.8-10.44); Glucose 108 mg/dL (83-110); Magnesium 1.6 mg/dL (1.6-2.6); Phosphorus 3.2 mg/dL (2.3-4.7); Protein, Total 6.5 g/dL (6.0-8.3)
[2019-01-24 04:27] LABS: Anisocytosis SLIGHT = 6-15 cells (100X) (0-5/hpf); Band 4 % (5-11); Eosinophils 10 % (0-10); Hemoglobin 8.9 g/dL (12.0-16.0); Large Platelets SLIGHT; Lymphocytes 44 % (21-51); MDiff Complete? YES; Mean Corpuscular HGB CONC 35.3 g/dL (32.0-36.0); Mean Corpuscular Hemoglobin 30.1 pg (27.0-31.0); Mean Corpuscular Volume 85.3 fL (78.0-98.0); Mean Platelet Volume 11.1 fL (7.4-10.4); Monocytes 6 % (0-10); Neutrophil 36 % (42-75); Platelet Count 42 thou/uL (130-400); Platelet Morphology Comment Appears Decreased; Red Blood Cell (RBC) Count 2.97 mill/uL (4.20-5.40)
[2019-01-24] MEDS ORDERED: Potassium Chloride 20 MEQ TAB PO SCH ×2 (04:30→11:15)
[2019-01-24] MEDS ORDERED: Potassium Chloride 40 MEQ in Sodium Chloride 0.9% 250 ML 250 ML IVPB SCH (04:30)
[2019-01-24] MEDS ORDERED: Magnesium 2 GM/50 ML 2 GM in Premix Bag 1 BAG IVPB SCH (04:45)
[2019-01-24] MEDS: Levothyroxine Sodium 25 MCG TAB PO SCH (06:11)
[2019-01-24] MEDS: Furosemide 40 MG TAB PO SCH ×2 (07:53→21:21)
[2019-01-24] MEDS: valACYclovir 500 MG TAB PO SCH (07:53)
[2019-01-24] MEDS: NIFEdipine XL 30 MG TAB PO SCH (07:53)
[2019-01-24] MEDS: Mometasone/Formoterol 120 PUFF INHALER INH SCH ×2 (08:31→19:51)
[2019-01-24] MEDS: Voriconazole 50 MG TAB PO SCH ×2 (09:36→21:21)
--- NOTE | 2019-01-24 10:56 | PDOC.HOSPP ---
- Subjective Encounter Date: 01/24/19 Encounter Time: 08:50 Subjective: Comfortable. Expresses no complaint. - Objective Vital Signs & Weight: Vital Signs (12 hours) Temp Pulse Resp BP BP Pulse Ox 01/24/19 08:31 98 12 100 01/24/19 08:14 97.7 F 94 16 136/71 100 01/24/19 07:56 97.7 F 94 16 136/71 100 01/24/19 07:53 94 136/71 01/24/19 04:15 98.4 F 94 18 161/85 H 99 01/23/19 23:49 99.2 F 98 17 137/82 100 Weight Admit Weight 123 lb 14.4 oz Weight 123 lb 14.4 oz I&O: 01/23/19 01/24/19 01/25/19 06:59 06:59 06:59 Intake Total 750 1810 250 Output Total 2250 Balance 750 -440 250 Result Diagrams: 01/24/19 03:25 01/24/19 03:25 Hospitalist ROS - Medication Medications: Active Medications Generic Name Dose Route Start Last Admin Trade Name Freq PRN Reason Stop Dose Admin Furosemide 40 mg 01/23/19 09:00 01/24/19 07:53 Lasix PO 40 mg BID ABE Administration Vancomycin HCl 750 mg/ Sodium 250 mls @ 250 mls/hr 01/23/19 11:00 01/23/19 10 :48 Chloride IVPB 250 mls 1100 ABE Administration Cefepime HCl 2 gm/ Sodium 100 mls @ 100 mls/hr 01/23/19 10:00 01/23/19 21:15 Chloride IVPB 100 mls Q12H ABE Administration Levothyroxine Sodium 25 mcg 01/23/19 06:00 01/24/19 06:11 Synthroid PO 25 mcg 0600 ABE Administration Mometasone Furoate/Formoterol Fumar 2 puff 01/23/19 06:30 01/24/19 08:31 Dulera 100 Mcg/5 Mcg Inhaler INH 2 puff BID-RT ABE Administration Nifedipine 30 mg 01/23/19 09:00 01/24/19 07:53 Procardia Xl PO 30 mg DAILY ABE Administration Pantoprazole Sodium 40 mg 01/23/19 09:00 01/24/19 07:53 Protonix PO 40 mg DAILY ABE Administration Valacyclovir HCl 500 mg 01/23/19 09:00 01/24/19 07:53 Valtrex PO 500 mg DAILY ABE Administration Voriconazole 300 mg 01/23/19 09:00 01/24/19 09:36 Vfend PO 300 mg BID ABE Administration - Exam General Appearance: NAD Neck: no JVD Heart: RRR Respiratory: CTAB Gastrointestinal: soft Extremities: no edema Neurological: no weakness Hosp A/P (1) Pancytopenia Code(s): D61.818 - OTHER PANCYTOPENIA Status: Acute (2) Dementia Code(s): F03.90 - UNSPECIFIED DEMENTIA WITHOUT BEHAVIORAL DISTURBANCE Status: Acute (3) History of leukemia Code(s): Z85.6 - PERSONAL HISTORY OF LEUKEMIA Status: Acute (4) Elevated liver enzymes Code(s): R74.8 - ABNORMAL LEVELS OF OTHER SERUM ENZYMES Status: Acute (5) Hyponatremia Code(s): E87.1 - HYPO-OSMOLALITY AND HYPONATREMIA Status: Acute (6) CLL (chronic lymphocytic leukemia) Code(s): C91.90 - LYMPHOID LEUKEMIA, UNSPECIFIED NOT HAVING ACHIEVED REMISSION Status: Chronic (7) Elevated serum creatinine Code(s): R79.89 - OTHER SPECIFIED ABNORMAL FINDINGS OF BLOOD CHEMISTRY Status : Acute - Plan On broad spectrum antibiotics.. Severe neutropenia persists.. f/u cbc. f/u with Oncology.
--- NOTE | 2019-01-24 11:05 | PDOC.EVN ---
Event Note - Event Note Event Note: Serum K is low, due to poor intake.. K supplemented..
[2019-01-24] MEDS: Cefepime 2 GM in Sodium Chloride 0.9% 100 ML IVPB SCH ×2 (11:40→21:21)
[2019-01-24] MEDS: Vancomycin HCl 750 MG in Sodium Chloride 0.9% 250 ML 250 ML IVPB SCH (12:15)
[2019-01-25] MEDS: Levothyroxine Sodium 25 MCG TAB PO SCH (05:42)
[2019-01-25 06:32] LABS: ALT (SGPT) 77 U/L (8-55); AST (SGOT) 80 U/L (5-34); Albumin 3.6 g/dL (3.4-4.8); Alkaline Phosphatase 797 U/L (40-110); Anion Gap 11 mmol/L (10-20); BUN (Urea Nitrogen) 29 mg/dL (9.8-20.1); Bilirubin, Direct 0.5 mg/dL (0.1-0.3); Bilirubin, Total 0.9 mg/dL (0.2-1.2); Calc. Creatinine Clearance 53 mL/min (70-130); Carbon Dioxide 29 mmol/L (23-31); Chloride 95 mmol/L (98-107); Estimated GFR-MDRD 68; Glucose 111 mg/dL (83-110); Magnesium 1.9 mg/dL (1.6-2.6); Phosphorus 3.5 mg/dL (2.3-4.7); Potassium 3.4 mmol/L (3.5-5.1); Protein, Total 6.2 g/dL (6.0-8.3); Sodium 132 mmol/L (136-145)
[2019-01-25 06:40] LABS: Band 12 % (5-11); Eosinophils 14 % (0-10); Hemoglobin 8.8 g/dL (12.0-16.0); Large Platelets SLIGHT; Lymphocytes 37 % (21-51); MDiff Complete? YES; Mean Corpuscular HGB CONC 34.6 g/dL (32.0-36.0); Mean Corpuscular Hemoglobin 29.7 pg (27.0-31.0); Mean Corpuscular Volume 85.9 fL (78.0-98.0); Mean Platelet Volume 10.9 fL (7.4-10.4); Monocytes 10 % (0-10); Myelocyte 2 % (0-0); Neutrophil 23 % (42-75); Platelet Count 51 thou/uL (130-400); Platelet Morphology Comment Appears Adequate; RBC Distribution Width 17.9 % (11.5-14.5); Reactive Lymphocytes 1 % (0-10); Red Blood Cell (RBC) Count 2.97 mill/uL (4.20-5.40); White Blood Cell (WBC) Count 1.3 thou/uL (4.8-10.8)
[2019-01-25] MEDS: Mometasone/Formoterol 120 PUFF INHALER INH SCH ×2 (07:08→19:46)
[2019-01-25] MEDS ORDERED: Ondansetron PF 4 MG/2 ML Vial SLOW IVP PRN (09:15)
--- NOTE | 2019-01-25 09:26 | PDOC.HOSPP ---
- Subjective Encounter Date: 01/25/19 Encounter Time: 07:40 Subjective: Expresses no specific complaint. - Objective Vital Signs & Weight: Vital Signs (12 hours) Temp Pulse Resp BP Pulse Ox 01/25/19 08:00 98.0 F 102 H 20 147/81 H 93 L 01/25/19 07:08 92 14 96 01/25/19 03:54 98.5 F 94 12 125/71 97 01/24/19 23:30 98.3 F 89 16 126/69 94 L Weight Admit Weight 123 lb 14.4 oz Weight 123 lb 14.4 oz I&O: 01/24/19 01/25/19 01/26/19 06:59 06:59 06:59 Intake Total 1810 1700 Output Total 2250 1550 Balance -440 150 Result Diagrams: 01/25/19 05:51 01/25/19 05:51 Hospitalist ROS - Medication Medications: Active Medications Generic Name Dose Route Start Last Admin Trade Name Freq PRN Reason Stop Dose Admin Bisacodyl 10 mg 01/23/19 04:30 01/25/19 06:09 Dulcolax PO 10 mg DAILYPRN PRN Administration Constipation Furosemide 40 mg 01/23/19 09:00 01/24/19 21:21 Lasix PO 40 mg BID ABE Administration Vancomycin HCl 750 mg/ Sodium 250 mls @ 250 mls/hr 01/23/19 11:00 01/24/19 12 :15 Chloride IVPB 250 mls 1100 ABE Administration Cefepime HCl 2 gm/ Sodium 100 mls @ 100 mls/hr 01/23/19 10:00 01/24/19 21:21 Chloride IVPB 100 mls Q12H ABE Administration Levothyroxine Sodium 25 mcg 01/23/19 06:00 01/25/19 05:42 Synthroid PO 25 mcg 0600 ABE Administration Mometasone Furoate/Formoterol Fumar 2 puff 01/23/19 06:30 01/25/19 07:08 Dulera 100 Mcg/5 Mcg Inhaler INH 2 puff BID-RT ABE Administration Nifedipine 30 mg 01/23/19 09:00 01/24/19 07:53 Procardia Xl PO 30 mg DAILY ABE Administration Pantoprazole Sodium 40 mg 01/23/19 09:00 01/24/19 07:53 Protonix PO 40 mg DAILY ABE Administration Sodium Chloride 10 ml 01/24/19 21:00 01/24/19 21:21 Flush - Normal Saline IVF 10 ml Q12HR ABE Administration Valacyclovir HCl 500 mg 01/23/19 09:00 01/24/19 07:53 Valtrex PO 500 mg DAILY ABE Administration Voriconazole 300 mg 01/23/19 09:00 01/24/19 21:21 Vfend PO 300 mg BID ABE Administration - Exam General Appearance: NAD Neck: no JVD Heart: RRR Respiratory: CTAB Gastrointestinal: soft Extremities: no edema Neurological: no weakness Hosp A/P (1) Pancytopenia Code(s): D61.818 - OTHER PANCYTOPENIA Status: Acute (2) Dementia Code(s): F03.90 - UNSPECIFIED DEMENTIA WITHOUT BEHAVIORAL DISTURBANCE Status: Acute (3) History of leukemia Code(s): Z85.6 - PERSONAL HISTORY OF LEUKEMIA Status: Acute (4) Elevated liver enzymes Code(s): R74.8 - ABNORMAL LEVELS OF OTHER SERUM ENZYMES Status: Acute (5) Hyponatremia Code(s): E87.1 - HYPO-OSMOLALITY AND HYPONATREMIA Status: Acute (6) CLL (chronic lymphocytic leukemia) Code(s): C91.90 - LYMPHOID LEUKEMIA, UNSPECIFIED NOT HAVING ACHIEVED REMISSION Status: Chronic (7) Elevated serum creatinine Code(s): R79.89 - OTHER SPECIFIED ABNORMAL FINDINGS OF BLOOD CHEMISTRY Status : Resolved (8) Hypokalemia Code(s): E87.6 - HYPOKALEMIA Status: Acute Plan: Supplemented.. - Plan On broad spectrum antibiotics.. Severe neutropenia persists.. f/u cbc, bmp.. f/u with Oncology.
[2019-01-25] MEDS: valACYclovir 500 MG TAB PO SCH (09:30)
[2019-01-25] MEDS: Voriconazole 50 MG TAB PO SCH ×2 (09:30→21:51)
[2019-01-25] MEDS: NIFEdipine XL 30 MG TAB PO SCH (09:34)
[2019-01-25] MEDS: Furosemide 40 MG TAB PO SCH ×2 (09:35→21:38)
[2019-01-25] MEDS: Cefepime 2 GM in Sodium Chloride 0.9% 100 ML IVPB SCH ×2 (09:47→21:38)
[2019-01-25 10:27] LABS: Vancomycin, Trough 9.1 ug/mL
[2019-01-25] MEDS: Vancomycin HCl 1 GM in Premix Bag 1 BAG IVPB SCH (13:15)
[2019-01-25] MEDS ORDERED: Senokot 8.6 MG TAB PO PRN (20:20)
[2019-01-25] MEDS ORDERED: Polyethylene Glycol 3350 17 GM Packet PO PRN (20:20)
[2019-01-26] MEDS: Levothyroxine Sodium 25 MCG TAB PO SCH (05:46)
[2019-01-26] MEDS: Mometasone/Formoterol 120 PUFF INHALER INH SCH (06:20)
[2019-01-26 06:27] LABS: ALT (SGPT) 78 U/L (8-55); AST (SGOT) 68 U/L (5-34); Albumin 3.5 g/dL (3.4-4.8); Alkaline Phosphatase 761 U/L (40-110); Anion Gap 12 mmol/L (10-20); BUN (Urea Nitrogen) 33 mg/dL (9.8-20.1); Bilirubin, Direct 0.5 mg/dL (0.1-0.3); Calc. Creatinine Clearance 46 mL/min (70-130); Calcium 9.1 mg/dL (7.8-10.44); Carbon Dioxide 30 mmol/L (23-31); Chloride 93 mmol/L (98-107); Estimated GFR-MDRD 58; Glucose 115 mg/dL (83-110); Magnesium 1.9 mg/dL (1.6-2.6); Phosphorus 4.2 mg/dL (2.3-4.7); Potassium 3.6 mmol/L (3.5-5.1); Sodium 131 mmol/L (136-145)
[2019-01-26 06:43] LABS: Hemoglobin 8.2 g/dL (12.0-16.0); Mean Corpuscular HGB CONC 34.8 g/dL (32.0-36.0); Mean Corpuscular Hemoglobin 29.9 pg (27.0-31.0); Mean Corpuscular Volume 85.9 fL (78.0-98.0); Mean Platelet Volume 10.9 fL (7.4-10.4); Platelet Count 61 thou/uL (130-400); RBC Distribution Width 18.3 % (11.5-14.5); Red Blood Cell (RBC) Count 2.73 mill/uL (4.20-5.40); White Blood Cell (WBC) Count 1.8 thou/uL (4.8-10.8)
[2019-01-26] MEDS: Furosemide 40 MG TAB PO SCH (08:53)
[2019-01-26] MEDS: valACYclovir 500 MG TAB PO SCH (08:53)
[2019-01-26] MEDS: NIFEdipine XL 30 MG TAB PO SCH (08:53)
[2019-01-26] MEDS: Cefepime 2 GM in Sodium Chloride 0.9% 100 ML IVPB SCH (10:50)
[2019-01-26 11:33] VITALS: BP 112/60; TEMP 98.1
[2019-01-26] MEDS: Voriconazole 50 MG TAB PO SCH (12:21)
[2019-01-26] MEDS: Vancomycin HCl 1 GM in Premix Bag 1 BAG IVPB SCH (12:22)
--- NOTE | 2019-01-26 12:55 | PDOC.MOPN ---
Interval History: No complaints. Asking to go home. - Vital Signs Vital Signs: Vital Signs (12 hours) Temp Pulse Resp BP Pulse Ox 01/26/19 11:30 98.1 F 95 18 112/60 100 01/26/19 08:53 83 01/26/19 08:05 97.1 F L 83 22 H 118/67 100 01/26/19 08:00 100 01/26/19 06:20 85 12 01/26/19 04:00 98.1 F 85 16 111/65 93 L Weight Admit Weight 123 lb 14.4 oz Weight 123 lb 14.4 oz - Physical Exam General: Alert HEENT: Atraumatic, PERRLA, EOMI, Mucous membr. moist/pink Lungs: Clear to auscultation, Normal air movement Cardiovascular: Regular rate, Normal S1, Normal S2, No murmurs, Gallops, Rubs Abdomen: Normal bowel sounds, Soft, No tenderness, No hepatospenomegaly, No masses Extremities: No clubbing, No cyanosis, No edema, Normal pulses, No tenderness/ swelling Neurological: Normal speech Psych/Mental Status: Other (mild demetia) - Labs Result Diagrams: 01/26/19 05:53 01/26/19 05:53 Lab results: Laboratory Results - last 24 hr 01/26/19 05:53: WBC 1.8 L, RBC 2.73 L, Hgb 8.2 L, Hct 23.4 L, MCV 85.9, MCH 29.9 , MCHC 34.8, RDW 18.3 H, Plt Count 61 L, MPV 10.9 H 01/26/19 05:53: Sodium 131 L, Potassium 3.6, Chloride 93 L, Carbon Dioxide 30, Anion Gap 12, BUN 33 H, Creatinine 0.94, Estimated GFR (MDRD) 58, Glucose 115 H , Calcium 9.1, Phosphorus 4.2, Magnesium 1.9, Total Bilirubin 1.0, Direct Bilirubin 0.5 H, AST 68 H, ALT 78 H, Alkaline Phosphatase 761 H, Serum Total Protein 6.0, Albumin 3.5 Status: lab reviewed by me A/P - Problem (1) Myelodysplasia (myelodysplastic syndrome) Current Visit: Yes Code(s): D46.9 - MYELODYSPLASTIC SYNDROME, UNSPECIFIED Status: Acute (2) Dementia Current Visit: Yes Code(s): F03.90 - UNSPECIFIED DEMENTIA WITHOUT BEHAVIORAL DISTURBANCE Status: Acute (3) Pancytopenia Current Visit: Yes Code(s): D61.818 - OTHER PANCYTOPENIA Status: Acute - Plan Plan: Patient afebrile. CBC at baseline. Was due for chemo today for MF/MDS but will postpone until next week. DC home from my perspective.
--- NOTE | 2019-01-26 22:20 | DIS ---
DATE OF ADMISSION: 01/25/2019 DATE OF DISCHARGE: 01/26/2019 DISCHARGE DIAGNOSES: Pancytopenia, hyponatremia, hypokalemia, transaminitis. SECONDARY DISCHARGE DIAGNOSES: History of myelodysplastic syndrome, myelofibrosis, chronic obstructive pulmonary disease on 2 L of oxygen, hypothyroidism, coronary artery disease, hyperlipidemia. BRIEF HISTORY OF PRESENT ILLNESS: This is a 73-year-old female with a history of MDS, systemic mastocytosis, intermission on Dacogen chemotherapy, who had presented to Oncology Clinic with routine blood work and was incidentally found to have pancytopenia. She was sent to the emergency room for blood transfusion. She also was sent to the emergency room for workup of lethargy. HOSPITAL COURSE: Pancytopenia: The patient had a WBC of 1.9, H&H 6.6/18.1, and platelets of 50 on arrival to the ER. The patient had no evidence of bleeding. She had a chest x-ray which showed no evidence of CHF, but cardiomegaly. The patient received 2 units of blood and her hemoglobin responded appropriately to 8.9. She was monitored on the Oncology unit and did not spike any fevers. Her Eliquis was initially held due to low platelet count of 50. However, this improved to 61 on the day of discharge. Therefore, she was resumed on eliquis on discharge. Per Oncology, the patient is stable for discharge and she will follow up next week for chemotherapy with her Dacogen. Hyponatremia/hypokalemia: The patient was noted to have sodium of 134, which dropped to 131 on the day of discharge. However, she denies any dizziness or lightheadedness. The patient is eating appropriately. She did have a potassium of 2.8 on the 7th, which increased to 3.6 on the day of discharge. The patient can follow up with her PCP and have a repeat BMP next week to assess hyponatremia Transaminitis: AST was 68, ALT of 78, and alkaline phosphatase of 761. She did have an abdominal ultrasound done, which showed coarse liver echogenicity. She is status post cholecystectomy. The patient can follow up with repeat LFTs as an outpatient. Lethargy: The patient was lethargic initially. CT scan of her head was normal. Her lethargy resolved on discharge. This is most likely secondary to symptomatic anemia. COPD on 2 L of oxygen: The patient remained on her baseline oxygen requirement during her hospital course. She is on Breo and will be discharged on her home inhaler as an outpatient. Hypertension: The patient was continued on her outpatient nifedipine, however, she was not receiving metoprolol during her hospital course. Her blood pressure was 112 to 118 without her metoprolol. Therefore, this will be discontinued on discharge. DISCHARGE PHYSICAL EXAMINATION: VITAL SIGNS: Temperature 99.2, HR 98, RR 17, O2 saturations 100% on room air, and BP 137/82. GENERAL: The patient is alert, awake, oriented x3, on 2 L of oxygen. She appears to be slightly malnourished. CVS: Regular rate and rhythm with no murmurs, rubs, or gallops. LUNGS: Clear to auscultation bilaterally. ABDOMEN: Positive bowel sounds. Soft, nontender, and nondistended. EXTREMITIES: Dry skin with no edema. PERTINENT LABORATORY DATA: CBC 01/26: White blood cell count was 1.8, hemoglobin 8.2, hematocrit 23.4, and platelet count of 61. CMP 01/26: Shows a sodium of 131, potassium 3.6, creatinine of 0.94, AST 68, ALT 78, alkaline phosphatase 761. Vitamin B12: 1704. TSH: is 3.6. Troponin I: 0.016. PERTINENT IMAGING: Chest x-ray 01/22: Shows cardiomegaly with no evidence of CHF. CT brain 01/23: Shows no acute intracranial process. Abdominal ultrasound 01/23: Shows somewhat altered coarse liver echogenicity. Somewhat small right kidney with increased cortical echogenicity concerning for nonspecific chronic renal disease. DISCHARGE CONDITION: Stable on 2 L of oxygen. The patient will be discharged home. ACTIVITY: As tolerated. DIET: Heart healthy diet. DISCHARGE MEDICATIONS: The patient will be resumed on all her outpatient medications except her metoprolol will be discontinued due to blood pressure of 112/60 without her metoprolol. DISCHARGE INSTRUCTIONS: The patient should follow up with her PCP in a week to have her LFTs repeated. She can also consider repeat BMP for followup of hyponatremia. The patient should follow up with Dr. Ramirez in a week for resumption of her chemotherapy. Job ID: [id number] [facility]
--- NOTE | 2019-01-28 09:13 | PQF ---
[place] [place] [facility] [id number] [id number] CLINICAL DOCUMENTATION CLARIFICATION FORM: POST DISCHARGE Addendum to original discharge summary date: ____ Late entry note date: __ DATE:01/28/2019 ATTN:ELVA GARCIA Please exercise your independent, professional judgment in responding to the clarification form. Clinical indicators are provided on the bottom of this form for your review Please check appropriate box(s) to clarify if the following diagnosis has been ruled in or ruled out: ATN [ ] Ruled in diagnosis [ ] Continue to treat [ ] Resolved [ ] Ruled out diagnosis [ ] Cannot rule out diagnosis [ X ] Other diagnosis AKI [ ] Unable to determine For continuity of documentation, please document condition throughout progress notes and discharge summary. Thank You. CLINICAL INDICATORS - SIGNS / SYMPTOMS / LABS Elevated serum creatinine,Decreasing most likely resolving ATN-Documented in Hospitalist progress note on 01/23 by Martin Campbell Acute kidney injury likely due to dehydration and volume depletion-Documented in consultation on 01/23 by Clarence Arrington Hyponatremia,Hypokalemia-Documented in DS on 01/26 by Elva Garcia BUN-41,GFR-54 on 01/23,GFR-60 on 01/23,GFR-68 on 01/25,GFR-58 on 01/26- Documented in Laboratory RISK FACTORS Acute kidney injury likely due to dehydration and volume depletion-Documented in consultation on 01/23 by Clarence Arrington Hyponatremia,Hypokalemia-Documented in DS on 01/26 by Elva Garcia TREATMENTS Furosemide 40 mg PO-Documented in Medication snapshot Abdomen ultrasound on 01/23 (This form is maintained as a part of the permanent medical record) 2014 [employer], [employer]. All Rights Reserved [email or web address] [not provided] MTDD
== END 2019-01-26 15:19 | disposition home or self-care (01) | DRG 809 ==
LOC: ERS 18:48 → ONC 01-23 00:18 → OBSVTOIN 01-25 15:36
PROVIDERS: ADMIT Internal Medicine; ATTEND Internal Medicine
PROC: 30233N1 Transfusion of Nonautologous Red Blood Cells into Peripheral Vein, Percutaneous Approach (ICD-10-PCS; principal; 2019-01-22)
DX: D61.818 Other pancytopenia (principal); N17.9 Acute kidney failure, unspecified; E87.1 Hypo-osmolality and hyponatremia; D75.81 Myelofibrosis; D47.09 Other mast cell neoplasms of uncertain behavior; C91.10 Chronic lymphocytic leukemia of B-cell type not having achieved remission; F03.90 Unspecified dementia, unspecified severity, without behavioral disturbance, psychotic disturbance, mood disturbance, and anxiety; E86.0 Dehydration; D46.9 Myelodysplastic syndrome, unspecified; I10 Essential (primary) hypertension; E78.5 Hyperlipidemia, unspecified; E87.6 Hypokalemia; E03.9 Hypothyroidism, unspecified; R74.9 Abnormal serum enzyme level, unspecified; I51.7 Cardiomegaly; Z90.49 Acquired absence of other specified parts of digestive tract; Z88.0 Allergy status to penicillin; Z98.51 Tubal ligation status; Z90.710 Acquired absence of both cervix and uterus; J44.9 Chronic obstructive pulmonary disease, unspecified
CPT/HCPCS: 36415; 36430; 70450; 71045; 76705; 80048; 80053; 80074; 80076; 80202; 82607; 83735; 84100; 84443; 84484; 85025; 85610; 85730; 86850; 86900; 86901; 87040; 93005; 93010; J0692; J1642; J1940; J2405; J3370; J3475; J3480; J3490; J7050; P9016

== ENCOUNTER 2019-02-16 15:21 | Day surgery (SDC) | payer MEDICARE ==
[2019-02-16] MEDS ORDERED: Acetaminophen 500 MG TAB ONE (16:46)
[2019-02-16] MEDS ORDERED: diphenhydrAMINE 25 MG CAP ONE (16:47)
[2019-02-16] MEDS ORDERED: Sodium Chloride 0.9% 40 ML ONE (17:11)
[2019-02-16] MEDS ORDERED: Acetaminophen 500 MG TAB PO SCH (17:15)
[2019-02-16] MEDS ORDERED: diphenhydrAMINE 25 MG CAP PO SCH (17:15)
[2019-02-16 22:24] VITALS: BP 127/89; TEMP 98.6
[2019-02-16 23:13] LABS: Hemoglobin 7.3 g/dL (12.0-16.0); Mean Corpuscular HGB CONC 35.6 g/dL (32.0-36.0); Mean Corpuscular Hemoglobin 30.8 pg (27.0-31.0); Mean Corpuscular Volume 86.5 fL (78.0-98.0); Mean Platelet Volume 10.3 fL (7.4-10.4); Platelet Count 74 thou/uL (130-400); RBC Distribution Width 17.4 % (11.5-14.5); Red Blood Cell (RBC) Count 2.39 mill/uL (4.20-5.40); White Blood Cell (WBC) Count 5.4 thou/uL (4.8-10.8)
== END 2019-02-16 23:00 | disposition home or self-care (01) ==
LOC: ONC/OP 15:21
PROVIDERS: ATTEND Internal Medicine Hematology & Oncology
PROC: 30233N1 Transfusion of Nonautologous Red Blood Cells into Peripheral Vein, Percutaneous Approach (ICD-10-PCS; principal; 2019-02-16)
DX: D64.9 Anemia, unspecified (principal); D69.6 Thrombocytopenia, unspecified; D47.02 Systemic mastocytosis; Z88.0 Allergy status to penicillin; Z88.8 Allergy status to other drugs, medicaments and biological substances; Z91.041 Radiographic dye allergy status
CPT/HCPCS: 36415; 36430; 80053; 82248; 83615; 84100; 84550; 85027; 86850; 86900; 86901; P9016; Q0163

== ENCOUNTER 2019-03-03 14:23 | Day surgery (SDC) | payer MEDICARE ==
[2019-03-03] MEDS ORDERED: diphenhydrAMINE 25 MG CAP PO SCH (15:00)
[2019-03-03] MEDS ORDERED: Acetaminophen 500 MG TAB PO SCH (15:00)
[2019-03-03 16:16] VITALS: BMI 22.3
[2019-03-04 00:45] VITALS: BP 145/68; TEMP 98.3
[2019-03-04 00:52] LABS: #Eosinphils 0.5 thou/uL (0.0-0.7); #Lymphocytes 0.8 thou/uL (1.20-3.40); #Monocytes 0.6 thou/uL (0.11-0.59); #Neutrophils 2.9 thou/uL (1.40-6.50); %Basophils 0.5 % (0.0-1.0); %Eosinophils 10.8 % (0.0-10.0); %Lymphocytes 16.4 % (21.0-51.0); %Neutrophils 60.2 % (42.0-75.0); Mean Corpuscular HGB CONC 34.8 g/dL (32.0-36.0); Mean Corpuscular Hemoglobin 30.3 pg (27.0-31.0); Mean Corpuscular Volume 87.1 fL (78.0-98.0); Mean Platelet Volume 10.5 fL (7.4-10.4); Platelet Count 52 thou/uL (130-400); RBC Distribution Width 14.9 % (11.5-14.5); Red Blood Cell (RBC) Count 2.64 mill/uL (4.20-5.40); White Blood Cell (WBC) Count 4.8 thou/uL (4.8-10.8)
== END 2019-03-04 00:50 | disposition home or self-care (01) ==
LOC: ONC/OP 14:23 → ONC 15:46 → ONC/OP 03-04 00:50
PROVIDERS: ATTEND Internal Medicine Hematology & Oncology
PROC: 30233N1 Transfusion of Nonautologous Red Blood Cells into Peripheral Vein, Percutaneous Approach (ICD-10-PCS; principal; 2019-03-03)
PROC: 30233R1 Transfusion of Nonautologous Platelets into Peripheral Vein, Percutaneous Approach (ICD-10-PCS; 2019-03-03)
DX: D64.9 Anemia, unspecified (principal); D69.6 Thrombocytopenia, unspecified; Z88.0 Allergy status to penicillin; Z88.6 Allergy status to analgesic agent; Z91.041 Radiographic dye allergy status
CPT/HCPCS: 36430; 85025; 86850; 86900; 86901; P9016; P9035; Q0163

== ENCOUNTER 2019-03-16 11:16 | Day surgery (SDC) | payer MEDICARE ==
[2019-03-16 12:08] VITALS: BMI 22.0
[2019-03-16] MEDS ORDERED: diphenhydrAMINE 25 MG CAP PO SCH (12:15)
[2019-03-16] MEDS ORDERED: Acetaminophen 500 MG TAB PO SCH (12:15)
[2019-03-16] MEDS ORDERED: FLU VACC TS2019-20(65YR UP)/PF 180 MCG/0.5 ML SYRINGE IM ONE (12:30)
[2019-03-16 21:36] VITALS: BP 139/68; TEMP 98.3
== END 2019-03-16 21:36 | disposition home or self-care (01) ==
LOC: ONC/OP 11:16 → ONC 11:20 → ONC/OP 21:36
PROVIDERS: ATTEND Internal Medicine Hematology & Oncology
PROC: 30233N1 Transfusion of Nonautologous Red Blood Cells into Peripheral Vein, Percutaneous Approach (ICD-10-PCS; principal; 2019-03-16)
DX: D64.9 Anemia, unspecified (principal); D69.6 Thrombocytopenia, unspecified; Z88.0 Allergy status to penicillin; Z88.8 Allergy status to other drugs, medicaments and biological substances; Z91.041 Radiographic dye allergy status
CPT/HCPCS: 36430; 80053; 82248; 83615; 84100; 84550; 86850; 86900; 86901; P9016; Q0163

== ENCOUNTER 2019-03-31 08:57 | Day surgery (SDC) | payer MEDICARE ==
[2019-03-31] MEDS ORDERED: Acetaminophen 500 MG TAB PO SCH (09:30)
[2019-03-31] MEDS ORDERED: diphenhydrAMINE 25 MG CAP PO SCH (09:30)
[2019-03-31] MEDS ORDERED: Sodium Chloride 0.9% 20 ML ONE (10:16)
[2019-03-31 13:26] VITALS: BP 110/62; TEMP 98
== END 2019-03-31 13:26 | disposition home or self-care (01) ==
LOC: ONC/OP 08:57
PROVIDERS: ATTEND Internal Medicine Hematology & Oncology
PROC: 30233N1 Transfusion of Nonautologous Red Blood Cells into Peripheral Vein, Percutaneous Approach (ICD-10-PCS; principal; 2019-03-31)
DX: D64.9 Anemia, unspecified (principal); D69.6 Thrombocytopenia, unspecified; Z88.0 Allergy status to penicillin; Z88.6 Allergy status to analgesic agent; Z91.041 Radiographic dye allergy status
CPT/HCPCS: 36430; 86850; 86900; 86901; J1642; P9016; Q0163

== ENCOUNTER 2019-04-06 11:14 | Day surgery (SDC) | payer MEDICARE ==
[2019-04-03 10:49] VITALS: BMI 23.3
[~2019-04-06 11:14] MED LIST: PROPOFOL 200 MG/20 ML VIAL ONE
--- NOTE | 2019-04-06 13:39 | CT ---
CT GUIDED RIGHT ILIAC BONE MARROW ASPIRATION AND BIOPSY: CLINICAL HISTORY: Aggressive systemic mastocytosis. PROCEDURE: The procedure including the risks and complications were explained to the patient, and informed conse nt was obtained. The patient was placed on the CT scan table in the prone position. General endotracheal anesthesia was performed by the anesthesiology department. Noncontrasted CT images were obtained through the pelvis. An area was marked overlying the RIGHT kerri c bone, and the area was meticulously prepped and draped in usual sterile fashion. The skin and subcutaneous tissues were infiltrated with buffered 1% lidocaine for local anesthesia. After a small skin incision was made, an 11-gauge needle was advanced and positioning was confirmed w ith axial CT images. Approximately 7 milliliters of bone marrow aspirate was obtained. The needle was then further advanced, and a bone marrow biopsy was performed. The needle was removed, and hemost asis was achieved with direct pressure. The patient tolerated the procedure well and without immediate complication. The patient was transported to radiology nurses holding area for further eden toring prior to discharge. IMPRESSION: Technically successful percutaneous bone marrow aspiration and biopsy. Pathology results are pending.
[2019-04-06] MEDS ORDERED: Sodium Chloride 0.9% 10 ML ONE ×2 (14:28→14:29)
--- NOTE | 2019-04-08 12:31 | CT ---
CT GUIDED RIGHT ILIAC BONE MARROW ASPIRATION AND BIOPSY: CLINICAL HISTORY: Aggressive systemic mastocytosis. PROCEDURE: The procedure including the risks and complications were explained to the patient, and informed conse nt was obtained. The patient was placed on the CT scan table in the prone position. General endotracheal anesthesia was performed by the anesthesiology department. Noncontrasted CT images were obtained through the pelvis. An area was marked overlying the RIGHT kerri c bone, and the area was meticulously prepped and draped in usual sterile fashion. The skin and subcutaneous tissues were infiltrated with buffered 1% lidocaine for local anesthesia. After a small skin incision was made, an 11-gauge needle was advanced and positioning was confirmed w ith axial CT images. Approximately 7 milliliters of bone marrow aspirate was obtained. The needle was then further advanced, and a bone marrow biopsy was performed. The needle was removed, and hemost asis was achieved with direct pressure. The patient tolerated the procedure well and without immediate complication. The patient was transported to radiology nurses holding area for further eden toring prior to discharge. IMPRESSION: Technically successful percutaneous bone marrow aspiration and biopsy. Pathology results are pending. Transcribed Date/Time: 04/08/2019 12:31 PM
== END 2019-04-06 14:15 | disposition home or self-care (01) ==
LOC: SDC/OP 11:14
PROVIDERS: ATTEND Internal Medicine Hematology & Oncology
PROC: 07DR3ZX Extraction of Iliac Bone Marrow, Percutaneous Approach, Diagnostic (ICD-10-PCS; principal; 2019-04-06)
PROC: 079T3ZX Drainage of Bone Marrow, Percutaneous Approach, Diagnostic (ICD-10-PCS; 2019-04-06)
DX: D75.81 Myelofibrosis (principal)
CPT/HCPCS: 20225; 77012; 85097; 88184; 88237; 88264; 88280; 88305; 88311; 88313; 88341; 88342; J2704

== ENCOUNTER 2019-04-09 08:40 | Day surgery (SDC) | payer MEDICARE ==
[2019-04-09] MEDS ORDERED: Acetaminophen 500 MG TAB PO SCH (09:30)
[2019-04-09] MEDS ORDERED: diphenhydrAMINE 25 MG CAP PO SCH (09:30)
[2019-04-09 13:13] LABS: Hemoglobin 7.5 g/dL (12.0-16.0)
[2019-04-09 14:23] VITALS: BP 113/58; TEMP 98
== END 2019-04-09 14:23 | disposition home or self-care (01) ==
LOC: ONC/OP 08:40
PROVIDERS: ATTEND Internal Medicine Hematology & Oncology
PROC: 30233N1 Transfusion of Nonautologous Red Blood Cells into Peripheral Vein, Percutaneous Approach (ICD-10-PCS; principal; 2019-04-09)
DX: D64.9 Anemia, unspecified (principal); D69.6 Thrombocytopenia, unspecified; Z88.0 Allergy status to penicillin; Z88.8 Allergy status to other drugs, medicaments and biological substances; Z91.041 Radiographic dye allergy status
CPT/HCPCS: 36430; 85014; 85018; 86850; 86900; 86901; P9016; Q0163

== ENCOUNTER 2019-04-14 10:22 | Outpatient (CLI) | payer MEDICARE ==
--- NOTE | 2019-04-14 11:47 | RAD ---
2 VIEW CHEST: Date: 04/14/2019 INDICATION: Cough and leukocytosis. COMPARISON: 01/22/2019. FINDINGS: Lung sierra show no focal or confluent infiltrate. Interstitial markings are mildly prominent, but ap pear stable. A PICC line via the right upper extremity remains in place overlying the SVC. Heart and mediastinum unremarkable. IMPRESSION: No evidence of acute interval change. POS: [facility]
== END 2019-04-14 10:23 | disposition home or self-care (01) ==
LOC: BICRAD 10:22
PROVIDERS: ATTEND Internal Medicine Hematology & Oncology
DX: D72.829 Elevated white blood cell count, unspecified (principal); R05 Cough
CPT/HCPCS: 71046

== ENCOUNTER 2019-04-22 11:57 | Day surgery (SDC) | payer MEDICARE ==
[2019-04-22] MEDS ORDERED: Acetaminophen 500 MG TAB PO SCH (13:00)
[2019-04-22] MEDS ORDERED: diphenhydrAMINE 25 MG CAP PO SCH (13:00)
[2019-04-22 19:09] VITALS: BP 118/60; TEMP 98
[2019-04-22 19:16] LABS: Hemoglobin 8.8 g/dL (12.0-16.0); Mean Corpuscular HGB CONC 34.1 g/dL (32.0-36.0); Mean Corpuscular Hemoglobin 29.7 pg (27.0-31.0); Mean Corpuscular Volume 87.1 fL (78.0-98.0); Mean Platelet Volume 11.2 fL (7.4-10.4); Platelet Count 44 thou/uL (130-400); RBC Distribution Width 14.5 % (11.5-14.5); Red Blood Cell (RBC) Count 2.98 mill/uL (4.20-5.40); White Blood Cell (WBC) Count 25.5 thou/uL (4.8-10.8)
[2019-04-22 19:36] LABS: Band 25 % (5-11); Eosinophils 18 % (0-10); Hypochromia SLIGHT = 6-15 cells (100X) (0-5/hpf); Large Platelets SLIGHT; Lymphocytes 6 % (21-51); MDiff Complete? YES; Metamyelocyte 1 % (0-0); Monocytes 5 % (0-10); Neutrophil 40 % (42-75); Platelet Morphology Comment Appears Decreased; Polychromasia SLIGHT = 2-3 cells (100X) (0-2/hpf); Reactive Lymphocytes 4 % (0-10)
== END 2019-04-22 19:00 | disposition home or self-care (01) ==
LOC: ONC/OP 11:57 → ONC 14:07 → ONC/OP 19:00
PROVIDERS: ATTEND Internal Medicine Hematology & Oncology
PROC: 30233N1 Transfusion of Nonautologous Red Blood Cells into Peripheral Vein, Percutaneous Approach (ICD-10-PCS; principal; 2019-04-22)
DX: D64.9 Anemia, unspecified (principal); D69.6 Thrombocytopenia, unspecified
CPT/HCPCS: 36430; 80053; 82248; 83615; 84100; 84550; 85025; 86850; 86900; 86901; P9016; Q0163

== ENCOUNTER 2019-05-07 09:52 | Day surgery (SDC) | payer MEDICARE ==
[2019-05-07] MEDS ORDERED: diphenhydrAMINE 25 MG CAP PO SCH (10:30)
[2019-05-07] MEDS ORDERED: Acetaminophen 500 MG TAB PO SCH (10:30)
[2019-05-07] MEDS ORDERED: Sodium Chloride 0.9% 20 ML ONE (13:15)
[2019-05-07 14:22] VITALS: BP 134/58; TEMP 97.6
== END 2019-05-07 14:22 | disposition home or self-care (01) ==
LOC: ONC/OP 09:52
PROVIDERS: ATTEND Internal Medicine Hematology & Oncology
PROC: 30233N1 Transfusion of Nonautologous Red Blood Cells into Peripheral Vein, Percutaneous Approach (ICD-10-PCS; principal; 2019-05-07)
DX: D64.9 Anemia, unspecified (principal); D69.6 Thrombocytopenia, unspecified; Z88.0 Allergy status to penicillin; Z88.8 Allergy status to other drugs, medicaments and biological substances; Z91.041 Radiographic dye allergy status
CPT/HCPCS: 36430; 86850; 86900; 86901; J1642; P9016; Q0163

== ENCOUNTER 2019-05-20 08:24 | Day surgery (SDC) | payer MEDICARE ==
[2019-05-20] MEDS ORDERED: Acetaminophen 500 MG TAB PO SCH (09:30)
[2019-05-20] MEDS ORDERED: diphenhydrAMINE 25 MG CAP PO SCH (09:30)
[2019-05-20] MEDS ORDERED: Sodium Chloride 0.9% 20 ML ONE (10:17)
[2019-05-20 14:36] VITALS: BP 100/58; TEMP 97.8
== END 2019-05-20 14:37 | disposition home or self-care (01) ==
LOC: ONC/OP 08:24
PROVIDERS: ATTEND Internal Medicine Hematology & Oncology
PROC: 30233N1 Transfusion of Nonautologous Red Blood Cells into Peripheral Vein, Percutaneous Approach (ICD-10-PCS; principal; 2019-05-20)
DX: D64.9 Anemia, unspecified (principal); D69.6 Thrombocytopenia, unspecified; Z88.0 Allergy status to penicillin; Z88.6 Allergy status to analgesic agent; Z91.041 Radiographic dye allergy status
CPT/HCPCS: 36430; 86850; 86900; 86901; J1642; P9016; Q0163

== ENCOUNTER 2019-05-26 10:53 | Day surgery (SDC) | payer MEDICARE ==
[2019-05-26] MEDS ORDERED: Acetaminophen 500 MG TAB PO SCH (11:15)
[2019-05-26] MEDS ORDERED: diphenhydrAMINE 25 MG CAP PO SCH (11:15)
[2019-05-26] MEDS ORDERED: Sodium Chloride 0.9% 20 ML ONE ×2 (12:58→13:09)
[2019-05-26 13:07] VITALS: TEMP 97.6
[2019-05-26 13:13] VITALS: BP 119/56
[2019-05-26 13:23] LABS: #Eosinphils 0.5 thou/uL (0.0-0.7); #Lymphocytes 0.4 thou/uL (1.20-3.40); #Monocytes 0.2 thou/uL (0.11-0.59); #Neutrophils 2.5 thou/uL (1.40-6.50); %Eosinophils 13.1 % (0.0-10.0); %Lymphocytes 12.1 % (21.0-51.0); %Monocytes 5.2 % (0.0-10.0); %Neutrophils 69.6 % (42.0-75.0); Mean Corpuscular HGB CONC 33.8 g/dL (32.0-36.0); Mean Corpuscular Hemoglobin 28.9 pg (27.0-31.0); Mean Corpuscular Volume 85.5 fL (78.0-98.0); Platelet Count 41 thou/uL (130-400); RBC Distribution Width 13.5 % (11.5-14.5); Red Blood Cell (RBC) Count 2.41 mill/uL (4.20-5.40); White Blood Cell (WBC) Count 3.6 thou/uL (4.8-10.8)
== END 2019-05-26 13:49 | disposition home or self-care (01) ==
LOC: ONC/OP 10:53
PROVIDERS: ATTEND Internal Medicine Hematology & Oncology
PROC: 30233R1 Transfusion of Nonautologous Platelets into Peripheral Vein, Percutaneous Approach (ICD-10-PCS; principal; 2019-05-26)
DX: D64.9 Anemia, unspecified (principal); D69.6 Thrombocytopenia, unspecified
CPT/HCPCS: 36430; 82728; 83540; 83550; 85025; 86850; 86900; 86901; J1642; P9035; Q0163

== ENCOUNTER 2019-06-01 11:09 | Day surgery (SDC) | payer MEDICARE ==
[2019-06-01] MEDS ORDERED: Sodium Chloride 0.9% 20 ML ONE (11:21)
[2019-06-01] MEDS ORDERED: diphenhydrAMINE 25 MG CAP PO SCH (11:45)
[2019-06-01] MEDS ORDERED: Acetaminophen 500 MG TAB PO SCH (11:45)
[2019-06-01 13:24] VITALS: TEMP 97.5
[2019-06-01 14:51] VITALS: BP 126/60
== END 2019-06-01 16:10 | disposition home or self-care (01) ==
LOC: ONC/OP 11:09
PROVIDERS: ATTEND Internal Medicine Hematology & Oncology
PROC: 30233N1 Transfusion of Nonautologous Red Blood Cells into Peripheral Vein, Percutaneous Approach (ICD-10-PCS; principal; 2019-06-01)
DX: D64.9 Anemia, unspecified (principal); D69.6 Thrombocytopenia, unspecified
CPT/HCPCS: 36430; 86850; 86900; 86901; J1642; P9016; Q0163

== ENCOUNTER 2019-06-08 09:53 | Day surgery (SDC) | payer MEDICARE ==
[2019-06-08] MEDS ORDERED: diphenhydrAMINE 25 MG CAP PO SCH (11:00)
[2019-06-08] MEDS ORDERED: Acetaminophen 500 MG TAB PO SCH (11:00)
[2019-06-08 14:51] VITALS: BP 107/56; TEMP 98.2
[2019-06-08 15:18] LABS: #Eosinphils 0.4 thou/uL (0.0-0.7); %Eosinophils 17.9 % (0.0-10.0); %Lymphocytes 40.3 % (21.0-51.0); %Monocytes 0.5 % (0.0-10.0); %Neutrophils 41.2 % (42.0-75.0); Mean Corpuscular HGB CONC 34.2 g/dL (32.0-36.0); Mean Corpuscular Hemoglobin 29.2 pg (27.0-31.0); Mean Corpuscular Volume 85.4 fL (78.0-98.0); Mean Platelet Volume 11.4 fL (7.4-10.4); Platelet Count 33 thou/uL (130-400); RBC Distribution Width 12.4 % (11.5-14.5); Red Blood Cell (RBC) Count 2.39 mill/uL (4.20-5.40); White Blood Cell (WBC) Count 2.4 thou/uL (4.8-10.8)
== END 2019-06-08 15:19 | disposition home or self-care (01) ==
LOC: SJX 09:53 → ONC 10:36 → SDC/OP 15:19
PROVIDERS: ATTEND Internal Medicine Hematology & Oncology
PROC: 30233N1 Transfusion of Nonautologous Red Blood Cells into Peripheral Vein, Percutaneous Approach (ICD-10-PCS; principal; 2019-06-08)
DX: D64.9 Anemia, unspecified (principal); D69.6 Thrombocytopenia, unspecified; Z88.0 Allergy status to penicillin; Z88.6 Allergy status to analgesic agent; Z91.041 Radiographic dye allergy status
CPT/HCPCS: 36430; 85025; 86850; 86900; 86901; 86920; P9016; Q0163; 80053; 82248; 83615; 84100; 84550; J1642

== ENCOUNTER 2019-06-18 09:56 | Day surgery (SDC) | payer MEDICARE ==
[2019-06-18] MEDS ORDERED: Sodium Chloride 0.9% 20 ML ONE (10:06)
[2019-06-18] MEDS ORDERED: Acetaminophen 500 MG TAB PO PRN (10:11)
[2019-06-18] MEDS ORDERED: diphenhydrAMINE 25 MG CAP PO PRN (10:11)
[2019-06-18 15:00] VITALS: BP 124/65; TEMP 97.5
== END 2019-06-18 15:00 | disposition home or self-care (01) ==
LOC: ONC/OP 09:56
PROVIDERS: ATTEND Internal Medicine Hematology & Oncology
PROC: 30233N1 Transfusion of Nonautologous Red Blood Cells into Peripheral Vein, Percutaneous Approach (ICD-10-PCS; principal; 2019-06-18)
DX: D64.9 Anemia, unspecified (principal); D69.6 Thrombocytopenia, unspecified; Z88.0 Allergy status to penicillin; Z88.3 Allergy status to other anti-infective agents; Z88.6 Allergy status to analgesic agent
CPT/HCPCS: 36430; 86850; 86900; 86901; J1642; P9016; Q0163

== ENCOUNTER 2019-07-02 08:41 | Day surgery (SDC) | payer MEDICARE ==
[2019-07-02] MEDS ORDERED: diphenhydrAMINE 25 MG CAP PO SCH (09:00)
[2019-07-02] MEDS ORDERED: Acetaminophen 500 MG TAB PO SCH (09:00)
[2019-07-02] MEDS ORDERED: Sodium Chloride 0.9% 20 ML ONE (09:45)
[2019-07-02 15:07] VITALS: TEMP 98
[2019-07-02 15:36] VITALS: BP 120/71
[2019-07-02 15:53] LABS: Hemoglobin 6.6 g/dL (12.0-16.0); Mean Corpuscular HGB CONC 35.8 g/dL (32.0-36.0); Mean Corpuscular Hemoglobin 31.5 pg (27.0-31.0); Mean Corpuscular Volume 87.9 fL (78.0-98.0); Mean Platelet Volume 8.5 fL (7.4-10.4); Platelet Count 28 thou/uL (130-400); RBC Distribution Width 12.5 % (11.5-14.5); Red Blood Cell (RBC) Count 2.08 mill/uL (4.20-5.40); White Blood Cell (WBC) Count 1.4 thou/uL (4.8-10.8)
[2019-07-02 16:32] LABS: Band 10 % (5-11); Eosinophils 11 % (0-10); Lymphocytes 12 % (21-51); MDiff Complete? YES; Monocytes 6 % (0-10); Neutrophil 61 % (42-75); Platelet Morphology Comment Appears Decreased; Polychromasia SLIGHT = 2-3 cells (100X) (0-2/hpf)
== END 2019-07-02 15:45 | disposition home or self-care (01) ==
LOC: ONC/OP 08:41
PROVIDERS: ATTEND Internal Medicine Hematology & Oncology
PROC: 30233N1 Transfusion of Nonautologous Red Blood Cells into Peripheral Vein, Percutaneous Approach (ICD-10-PCS; principal; 2019-07-02)
PROC: 30233R1 Transfusion of Nonautologous Platelets into Peripheral Vein, Percutaneous Approach (ICD-10-PCS; 2019-07-02)
DX: D69.6 Thrombocytopenia, unspecified (principal); D64.9 Anemia, unspecified; Z88.0 Allergy status to penicillin; Z88.6 Allergy status to analgesic agent; Z91.048 Other nonmedicinal substance allergy status
CPT/HCPCS: 36430; 36592; 85007; 85027; 86850; 86900; 86901; J1642; P9016; P9035; Q0163

== ENCOUNTER 2019-07-08 16:00 | Inpatient (IN) | payer MEDICARE ==
[2019-07-08] MEDS ORDERED: Piperacillin/Tazobactam 4.5 GM VIAL ONE (17:01)
[2019-07-08 17:16] LABS: Hemoglobin 5.3 g/dL (12.0-16.0); Mean Corpuscular HGB CONC 35.8 g/dL (32.0-36.0); Mean Corpuscular Hemoglobin 30.7 pg (27.0-31.0); Mean Corpuscular Volume 85.9 fL (78.0-98.0); Mean Platelet Volume 11.1 fL (7.4-10.4); Platelet Count 10 thou/uL (130-400); Red Blood Cell (RBC) Count 1.73 mill/uL (4.20-5.40); White Blood Cell (WBC) Count 0.9 thou/uL (4.8-10.8)
[2019-07-08] MEDS ORDERED: Vancomycin 1 GM/200 ML BAG ONE (17:16)
[2019-07-08 17:20] LABS: Bacteria/HPF None Seen HPF (None Seen); Bilirubin Negative (Negative); Blood, Urine Trace (Negative); Clarity Clear (Clear); Glucose, Urine (Dipstick) Normal (Negative); Leukocyte Negative Leu/uL (Negative); Mucous/LPF Rare LPF (<2+); Nitrite Negative (Negative); Protein, Urine (Dipstick) 30 mg/dL (Neg-Trace); RBC/HPF 0-3 HPF (0-3); Squamous Epithelial None Seen HPF (0-3); Urobilinogen Normal mg/dL (Less than 2); WBC/HPF 0-3 HPF (0-3)
--- NOTE | 2019-07-08 17:22 | RAD ---
Exam: Chest one view HISTORY:Potential Comparison: 01/22/2019, 04/14/2019 FINDINGS: Cardiac silhouette: Normal Aorta: Unremarkable Pulmonary vessels: Normal Costophrenic angles: Clear LUNGS: Chronic lung parenchymal changes, without mass or consolidation. Right-sided PICC line terminates in the caval atrial junction. Pneumothorax: None Osseous abnormalities: None IMPRESSION: No significant neural change. 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
[2019-07-08 17:37] LABS: ALT (SGPT) 9 U/L (8-55); AST (SGOT) 7 U/L (5-34); Albumin 3.9 g/dL (3.4-4.8); Alkaline Phosphatase 124 U/L (40-110); Anion Gap 13 mmol/L (10-20); BUN (Urea Nitrogen) 24 mg/dL (9.8-20.1); Bilirubin, Total 0.7 mg/dL (0.2-1.2); Calc. Creatinine Clearance 0 mL/min (70-130); Calcium 9.2 mg/dL (7.8-10.44); Carbon Dioxide 29 mmol/L (23-31); Chloride 94 mmol/L (98-107); Estimated GFR-MDRD 47; Globulin 2.1 g/dL (2.4-3.5); Glucose 121 mg/dL (83-110); Potassium 3.7 mmol/L (3.5-5.1); Sodium 132 mmol/L (136-145)
[2019-07-08 17:40] LABS: Band 18 % (5-11); Eosinophils 1 % (0-10); Lymphocytes 31 % (21-51); MDiff Complete? YES; Metamyelocyte 4 % (0-0); Monocytes 13 % (0-10); Neutrophil 32 % (42-75); Platelet Morphology Comment Appears Decreased; Polychromasia SLIGHT = 2-3 cells (100X) (0-2/hpf)
[2019-07-08] MEDS ORDERED: Acetaminophen 500 MG TAB ONE (18:23)
[2019-07-08] MEDS ORDERED: Acetaminophen 325 MG TAB PO PRN (18:26)
[2019-07-08 21:35] VITALS: BMI 22.8
[2019-07-08] MEDS: Sodium Chloride 0.9% 1,000 ML IV SCH (21:43)
[2019-07-08] MEDS: Cefepime 2 GM in Sodium Chloride 0.9% 100 ML IVPB SCH (21:44)
--- NOTE | 2019-07-09 02:35 | HP ---
CHIEF COMPLAINT: Generalized weakness. HISTORY OF PRESENT ILLNESS: The patient is a very pleasant 74-year-old female, with a history of MDS. She is currently on treatment, on IV chemotherapy which she received 25 days ago. The patient states that she normally takes an oral chemotherapy, which she does not recall the name of. The patient states that for the past few days, she has been feeling just generalized weakness. She was visited by her home health, who advised her to come into the hospital. The patient denies any fevers or chills at home. She has nausea, vomiting, and diarrhea which has been ongoing due to the oral chemotherapy medication. The patient's daughter in-law was recently tested positive for COVID-19. She is the one who brings meals and sits with the patient to give her some company. However, after she was tested positive for COVID, she has not been doing so. The patient herself was tested a few days later and the patient's test was negative. She denies any sore throat. She denies any cough, any shortness of breath. PAST MEDICAL HISTORY: She has hyperlipidemia, she has hypertension, has mastocytosis and COPD. PAST SURGICAL HISTORY: She has had a cholecystectomy, hysterectomy, tubal ligation and left knee repair. FAMILY HISTORY: Uncle with cancer. No heart disease or stroke. SOCIAL HISTORY: She is a former smoker. No alcohol use. No drug use. REVIEW OF SYSTEMS: All negative except the ones mentioned above in the HPI. PHYSICAL EXAMINATION: VITAL SIGNS: Temperature of 100.2, 72, 104/57, 16, 96% on room air. GENERAL: She is awake, alert, and oriented x3. Does not appear in any pain distress. CV: S1, S2 present. No murmurs, rubs, or gallops. LUNGS: Clear to auscultation. No rhonchi or wheezes noted. ABDOMEN: Soft and nontender. Bowel sounds are present x2. EXTREMITIES: No edema. Pedal pulses are present x2. NEUROVASCULAR: Has no focal deficits noted. SKIN: No cuts lesions or bruises noted. She does have a PICC line on her left arm. ALLERGIES: SHE HAS ALLERGIES TO ASPIRIN, IODINE, PENICILLIN. HOME MEDICATIONS: As of the following, this is per her old records. 1. She is on Zyprexa 0.5 twice daily. 2. She is on Lasix 40 mg twice daily. 3. Procardia 30 mg daily. 4. She is on Breo 1 puff daily. 5. Levothyroxine 25 mcg daily. 6. Protonix 40 mg daily. LABORATORY RESULTS: As of the following; WBCs of 0.9, hemoglobin of 5.3, hematocrit of 14.8, platelets of 10. Chemistry: Sodium of 132, potassium of 3.7, BUN of 24, creatinine 1.13, alkaline phosphatase of 124. IMAGING: The patient's chest x-ray did not show any acute abnormalities. It just showed stable lung parenchymal opacities, which are chronic. ASSESSMENT AND PLAN: The patient is a very pleasant 74-year-old female, who presents to the hospital with generalized weakness. 1. Neutropenic fever. The patient had a fever in the ER. She is significantly neutropenic. We will start her on cefepime and vancomycin for now. I will start her on some gentle hydration. We will trend and oncology has been consulted. She has been tested for COVID. I also recommended testing for respiratory viral panel. Blood cultures are done. 2. The patient also has a PICC line that PICC line has been in for about 8 months now and this was put in [facility]. 3. Sepsis, unclear etiology. We will continue IV hydration and antibiotics. 4. Pancytopenia, most likely due to her underlying chemotherapy agents. However, the patient is also on olanzapine. We will hold off on that medication for now. I will consult Oncology and continue to monitor her. We will put on neutropenic precautions. 5. Chronic kidney disease, stage 3. We will continue to monitor. We will also give some hydration. 6. Deep venous thrombosis prophylaxis. We will put the patient only on sequential compression devices since she has significant pancytopenia and also we will transfuse her 1 unit of platelets and 2 units of blood. She does have significant antibodies, so awaiting that. Job ID: [id number]
[2019-07-09] MEDS: Levothyroxine Sodium 25 MCG TAB PO SCH (06:10)
[2019-07-09] MEDS: Mometasone 200 MCG/Formoterol 5 MCG 120 PUFF INHALER INH SCH ×2 (06:10→19:42)
[2019-07-09] MEDS: Sodium Chloride 0.9% 1,000 ML IV SCH ×3 (08:43→19:34)
[2019-07-09] MEDS: Cefepime 2 GM in Sodium Chloride 0.9% 100 ML IVPB SCH ×2 (08:43→21:53)
[2019-07-09] MEDS ORDERED: Enoxaparin Sodium 40 MG/0.4 ML SYRINGE SC SCH (09:00)
[2019-07-09 09:35] LABS: Anion Gap 13 mmol/L (10-20); BUN (Urea Nitrogen) 21 mg/dL (9.8-20.1); Calc. Creatinine Clearance 50 mL/min (70-130); Calcium 8.5 mg/dL (7.8-10.44); Carbon Dioxide 26 mmol/L (23-31); Chloride 103 mmol/L (98-107); Estimated GFR-MDRD 61; Glucose 98 mg/dL (83-110); Potassium 3.7 mmol/L (3.5-5.1); Sodium 138 mmol/L (136-145)
[2019-07-09 11:46] LABS: SARS-CoV-2 MS2 Positive; SARS-CoV-2 N Gene Negative; SARS-CoV-2 S Gene Negative; SARS-CoV-2 orf1ab Negative
[2019-07-09 12:10] LABS: #Lymphocytes 0.4 thou/uL (1.20-3.40); #Neutrophils 0.4 thou/uL (1.40-6.50); %Eosinophils 3.5 % (0.0-10.0); %Lymphocytes 44.2 % (21.0-51.0); %Monocytes 5.5 % (0.0-10.0); %Neutrophils 46.7 % (42.0-75.0); Mean Corpuscular HGB CONC 34.6 g/dL (32.0-36.0); Mean Corpuscular Hemoglobin 30.6 pg (27.0-31.0); Mean Corpuscular Volume 88.3 fL (78.0-98.0); Mean Platelet Volume 8.1 fL (7.4-10.4); Platelet Count 28 thou/uL (130-400); RBC Distribution Width 12.9 % (11.5-14.5); Red Blood Cell (RBC) Count 2.29 mill/uL (4.20-5.40); White Blood Cell (WBC) Count 0.8 thou/uL (4.8-10.8)
--- NOTE | 2019-07-09 15:42 | PDOC.HOSPP ---
- Subjective Encounter Date: 07/09/19 Encounter Time: 14:00 Subjective: pt up in chair feels well. - Objective Vital Signs & Weight: Vital Signs (12 hours) Temp Pulse Resp BP BP Pulse Ox 07/09/19 12:28 98.6 F 82 18 106/55 L 98 07/09/19 09:02 98.3 F 82 18 113/57 L 99 07/09/19 06:15 98.1 F 82 20 98/53 L 96 Weight Admit Weight 131 lb 3.2 oz Weight 131 lb 3.2 oz I&O: 07/08/19 07/09/19 07/10/19 06:59 06:59 06:59 Intake Total 1598 Output Total 550 Balance 1048 Result Diagrams: 07/09/19 09:05 07/09/19 09:05 Hospitalist ROS - Review of Systems Cardiovascular: denies: chest pain, palpitations, orthopnea, paroxysmal noc. dyspnea, edema, light headedness, other Gastrointestinal: denies: nausea, vomiting, abdominal pain, diarrhea, constipation, melena, hematochezia, other Genitourinary: denies: dysuria, frequency, incontinence, hematuria, retention, other - Medication Medications: Active Medications Generic Name Dose Route Start Last Admin Trade Name Freq PRN Reason Stop Dose Admin Cefepime HCl 2 gm/ Sodium 100 mls @ 200 mls/hr 07/08/19 21:00 07/09/19 08:43 Chloride IVPB 100 mls Q12HR ABE Administration Sodium Chloride 1,000 mls @ 75 mls/hr 07/08/19 18:30 07/09/19 08:43 Normal Saline 0.9% IV 1,000 mls .[id number] ABE Administration Levothyroxine Sodium 25 mcg 07/09/19 06:00 07/09/19 06:10 Synthroid PO 25 mcg 0600 ABE Administration Mometasone Furoate/Formoterol Fumar 2 puff 07/09/19 06:30 07/09/19 06:10 Dulera 200 Mcg/5 Mcg Inhaler INH 2 puff BID-RT ABE Administration Pantoprazole Sodium 40 mg 07/09/19 09:00 07/09/19 08:43 Protonix PO 40 mg DAILY ABE Administration - Exam Neck: negative: supple, symmetric, no JVD, no thyromegaly, no lymphadenopathy, no carotid bruit, JVD Heart: negative: RRR, no murmur, no gallops, no rubs, normal peripheral pulses, irregular, diminshed peripheral pulses, murmur present, II/IV, III/IV Respiratory: negative: CTAB, no wheezes, no rales, no ronchi, normal chest expansion, no tachypnea, normal percussion, rales, rhonchi, tachypneic, wheezes Gastrointestinal: negative: soft, non-tender, non-distended, normal bowel sounds , no palpable masses, no hepatomegaly, no splenomegaly, no bruit, no guarding, no rigidity, tender to palpation, distended, diminished bowl sounds, voluntary guarding Hosp A/P (1) Neutropenic fever Code(s): D70.9 - NEUTROPENIA, UNSPECIFIED; R50.81 - FEVER PRESENTING WITH CONDITIONS CLASSIFIED ELSEWHERE Status: Acute (2) Myelodysplasia (myelodysplastic syndrome) Code(s): D46.9 - MYELODYSPLASTIC SYNDROME, UNSPECIFIED Status: Acute (3) Pancytopenia Code(s): D61.818 - OTHER PANCYTOPENIA Status: Acute (4) Anemia due to chemotherapy Code(s): D64.81 - ANEMIA DUE TO ANTINEOPLASTIC CHEMOTHERAPY; T45.1X5A - ADVERSE EFFECT OF ANTINEOPLASTIC AND IMMUNOSUP DRUGS, INIT Status: Chronic (5) Sepsis Code(s): A41.9 - SEPSIS, UNSPECIFIED ORGANISM Status: Acute - Plan pt's covid is negative. will continue vanco/cefepime. she is s/p 2u of prbc and one unit of platelets. will check cbc in am. Pt's bp is low but stable. will get ID to see pt. pt has a picc line to her right arm she has had it for 8months.
[2019-07-09] MEDS ORDERED: hydrOXYzine 10 MG TAB PO PRN (15:46)
[2019-07-09] MEDS ORDERED: Vancomycin HCl 500 MG in Sodium Chloride 0.9% 100 ML IVPB SCH (18:00)
[2019-07-09] MEDS: OLANZapine 2.5 MG TAB PO SCH (21:53)
[2019-07-09] MEDS: Mirtazapine 30 MG Soltab PO SCH (21:53)
[2019-07-09] MEDS: Allopurinol 100 MG TAB PO SCH (21:53)
[2019-07-10] MEDS: Levothyroxine Sodium 25 MCG TAB PO SCH (06:04)
[2019-07-10] MEDS: Mometasone 200 MCG/Formoterol 5 MCG 120 PUFF INHALER INH SCH ×2 (06:35→18:58)
[2019-07-10] MEDS: Cefepime 2 GM in Sodium Chloride 0.9% 100 ML IVPB SCH ×2 (08:42→20:49)
[2019-07-10] MEDS: OLANZapine 2.5 MG TAB PO SCH ×2 (08:43→20:50)
[2019-07-10 10:10] LABS: Anion Gap 10 mmol/L (10-20); BUN (Urea Nitrogen) 17 mg/dL (9.8-20.1); Calc. Creatinine Clearance 49 mL/min (70-130); Calcium 8.6 mg/dL (7.8-10.44); Carbon Dioxide 26 mmol/L (23-31); Chloride 105 mmol/L (98-107); Estimated GFR-MDRD 60; Glucose 116 mg/dL (83-110); Potassium 3.2 mmol/L (3.5-5.1); Sodium 138 mmol/L (136-145)
[2019-07-10 10:21] LABS: #Eosinphils 0.1 thou/uL (0.0-0.7); #Lymphocytes 0.3 thou/uL (1.20-3.40); #Neutrophils 0.4 thou/uL (1.40-6.50); %Lymphocytes 39.7 % (21.0-51.0); %Monocytes 5.4 % (0.0-10.0); %Neutrophils 47.9 % (42.0-75.0); Hemoglobin 6.6 g/dL (12.0-16.0); MDiff Complete? YES; Mean Corpuscular HGB CONC 34.4 g/dL (32.0-36.0); Mean Corpuscular Hemoglobin 30.7 pg (27.0-31.0); Mean Corpuscular Volume 89.3 fL (78.0-98.0); Mean Platelet Volume 8.3 fL (7.4-10.4); Platelet Count 21 thou/uL (130-400); RBC Distribution Width 12.8 % (11.5-14.5); Red Blood Cell (RBC) Count 2.16 mill/uL (4.20-5.40); White Blood Cell (WBC) Count 0.7 thou/uL (4.8-10.8)
[2019-07-10] MEDS: Sodium Chloride 0.9% 1,000 ML IV SCH (12:11)
--- NOTE | 2019-07-10 14:47 | PDOC.HOSPP ---
- Subjective Encounter Date: 07/10/19 Encounter Time: 11:15 Subjective: pt up in chair feels well no complains - Objective Vital Signs & Weight: Vital Signs (12 hours) Temp Pulse Resp BP BP Pulse Ox 07/10/19 12:00 97.6 F 77 18 121/58 L 98 07/10/19 08:00 97.9 F 75 18 135/66 97 07/10/19 04:43 98.4 F 80 16 131/68 96 Weight Admit Weight 131 lb 3.2 oz Weight 131 lb 3.2 oz I&O: 07/09/19 07/10/19 07/11/19 06:59 06:59 06:59 Intake Total 1598 238 0 Output Total 550 Balance 1048 238 0 Result Diagrams: 07/10/19 09:40 07/10/19 09:40 Hospitalist ROS - Review of Systems Cardiovascular: denies: chest pain, palpitations, orthopnea, paroxysmal noc. dyspnea, edema, light headedness, other Gastrointestinal: denies: nausea, vomiting, abdominal pain, diarrhea, constipation, melena, hematochezia, other Genitourinary: denies: dysuria, frequency, incontinence, hematuria, retention, other - Medication Medications: Active Medications Generic Name Dose Route Start Last Admin Trade Name Freq PRN Reason Stop Dose Admin Allopurinol 200 mg 07/09/19 21:00 07/09/19 21:53 Zyloprim PO 200 mg HS ABE Administration Cefepime HCl 2 gm/ Sodium 100 mls @ 200 mls/hr 07/08/19 21:00 07/10/19 08:42 Chloride IVPB 100 mls Q12HR ABE Administration Vancomycin HCl 500 mg/ Sodium 100 mls @ 100 mls/hr 07/09/19 18:00 07/09/19 19 :33 Chloride IVPB 100 mls 1800 ABE Administration Sodium Chloride 1,000 mls @ 75 mls/hr 07/08/19 18:30 07/10/19 12:11 Normal Saline 0.9% IV 1,000 mls .[id number] ABE Administration Levothyroxine Sodium 25 mcg 07/09/19 06:00 07/10/19 06:04 Synthroid PO 25 mcg 0600 ABE Administration Mirtazapine 30 mg 07/09/19 21:00 07/09/19 21:53 Remeron Soltab PO 30 mg HS ABE Administration Mometasone Furoate/Formoterol Fumar 2 puff 07/09/19 06:30 07/10/19 06:35 Dulera 200 Mcg/5 Mcg Inhaler INH 2 puff BID-RT ABE Administration Olanzapine 1.25 mg 07/09/19 21:00 07/10/19 08:43 Zyprexa PO 1.25 mg BID ABE Administration Pantoprazole Sodium 40 mg 07/09/19 09:00 07/10/19 08:44 Protonix PO 40 mg DAILY ABE Administration - Exam Neck: negative: supple, symmetric, no JVD, no thyromegaly, no lymphadenopathy, no carotid bruit, JVD Heart: negative: RRR, no murmur, no gallops, no rubs, normal peripheral pulses, irregular, diminshed peripheral pulses, murmur present, II/IV, III/IV Respiratory: negative: CTAB, no wheezes, no rales, no ronchi, normal chest expansion, no tachypnea, normal percussion, rales, rhonchi, tachypneic, wheezes Gastrointestinal: negative: soft, non-tender, non-distended, normal bowel sounds , no palpable masses, no hepatomegaly, no splenomegaly, no bruit, no guarding, no rigidity, tender to palpation, distended, diminished bowl sounds, voluntary guarding Hosp A/P (1) Neutropenic fever Code(s): D70.9 - NEUTROPENIA, UNSPECIFIED; R50.81 - FEVER PRESENTING WITH CONDITIONS CLASSIFIED ELSEWHERE Status: Acute (2) Myelodysplasia (myelodysplastic syndrome) Code(s): D46.9 - MYELODYSPLASTIC SYNDROME, UNSPECIFIED Status: Acute (3) Pancytopenia Code(s): D61.818 - OTHER PANCYTOPENIA Status: Acute (4) Anemia due to chemotherapy Code(s): D64.81 - ANEMIA DUE TO ANTINEOPLASTIC CHEMOTHERAPY; T45.1X5A - ADVERSE EFFECT OF ANTINEOPLASTIC AND IMMUNOSUP DRUGS, INIT Status: Chronic (5) Sepsis Code(s): A41.9 - SEPSIS, UNSPECIFIED ORGANISM Status: Acute - Plan pt's covid is negative. will continue vanco/cefepime. she is s/p 2u of prbc and one unit of platelets. will check cbc in am. Pt's bp is low but stable. will get ID to see pt. pt has a picc line to her right arm she has had it for 8months. 07/09 will discontinue vanco for now. Her cx have been negative. she was not suppose to be taking her oral chemo (venetoclax) for one week which she has been taking. will give her one more unit of blood. possible discharge in 24- 48hr. No more fevers.
--- NOTE | 2019-07-10 15:29 | EKG ---
Test Reason : Blood Pressure : / mmHG Vent. Rate : 111 BPM Atrial Rate : 111 BPM P-R Int : 128 ms QRS Dur : 094 ms QT Int : 322 ms P-R-T Axes : 058 -56 075 degrees QTc Int : 437 ms Sinus tachycardia Left anterior fascicular block Abnormal ECG Confirmed by ALINE JAEGER DO ([id number]), news copy editor ELLY WISDOM ([id number]) on 07/10/2019 3:29:26 PM Referred By: Confirmed By:ALINE JAEGER DO
[2019-07-10 16:58] LABS: Hemoglobin 8.5 g/dL (12.0-16.0); Mean Corpuscular HGB CONC 33.8 g/dL (32.0-36.0); Mean Corpuscular Hemoglobin 30.5 pg (27.0-31.0); Mean Corpuscular Volume 90.2 fL (78.0-98.0); Mean Platelet Volume 10.3 fL (7.4-10.4); Platelet Count 26 thou/uL (130-400); RBC Distribution Width 12.8 % (11.5-14.5); Red Blood Cell (RBC) Count 2.79 mill/uL (4.20-5.40); White Blood Cell (WBC) Count 1.2 thou/uL (4.8-10.8)
[2019-07-10] MEDS ORDERED: Potassium Chloride 20 MEQ TAB PO SCH (19:00)
[2019-07-10] MEDS: Mirtazapine 30 MG Soltab PO SCH (20:50)
[2019-07-10] MEDS: Allopurinol 100 MG TAB PO SCH (20:50)
--- NOTE | 2019-07-10 22:11 | CON ---
DATE OF CONSULTATION: REASON FOR CONSULTATION: Myeloproliferative neoplasm. HISTORY OF PRESENT ILLNESS: Ms. Quesada is a 74-year-old female with systemic mastocytosis, myelodysplastic syndrome versus myeloproliferative neoplasm, who is currently on treatment with venetoclax and Dacogen. She presented to the emergency room with generalized weakness. Her white count was 0.9, her hemoglobin was 5.3, and her platelet count was 10. She does have a history of transfusion dependent. She received her last transfusion on July 01. She had been exposed to COVID from a [id number] and was put on isolation on this admission, she has been ruled out. On admission, she was transfused 2 units of blood and a unit of platelets. She was started on empiric antibiotics. She was seen at bedside. She remains in neutropenic precautions. Denies any complaints at this time. The patient apparently did have a low-grade fever in the ER, but none since arrival. PAST MEDICAL HISTORY: 1. Systemic mastocytosis. 2. Myelofibrosis. 3. Myelodysplastic syndrome. 4. Hypertension. 5. COPD. 6. Hypothyroidism. 7. Coronary artery disease. 8. Hyperlipidemia. 9. Dementia. PAST SURGICAL HISTORY: 1. Cholecystectomy. 2. Bone marrow biopsies. 3. Hysterectomy. ALLERGIES: TO ASPIRIN, IODINE, AND PENICILLIN. HOME MEDICATIONS: 1. Allopurinol. 2. Levothyroxine. 3. Nifedipine. 4. Olanzapine. 5. Protonix. 6. Remeron. 7. Tramadol. 8. Valacyclovir. 9. Venetoclax. 10. Vfend. 11. Zofran. FAMILY HISTORY: Noncontributory. SOCIAL HISTORY: , has 2 children. Lives with spouse. REVIEW OF SYSTEMS: A 10-point review of systems is negative except for noted in HPI. PHYSICAL EXAMINATION: VITAL SIGNS: Temperature is 97.6, pulse is 77, blood pressure 121/58, and O2 sats 98%. GENERAL: Well-developed, well-nourished female, in no acute distress. HEENT: Normocephalic, atraumatic. Pupils equal and reactive to light. CV: Regular rate and rhythm. LUNGS: Diminished. EXTREMITIES: No clubbing or cyanosis. SKIN: She is pale. HEMATOLOGIC: Scattered ecchymosis. NEUROLOGIC: Nonfocal. PERTINENT LABORATORY DATA AND X-RAYS: Current WBCs are 0.7, hemoglobin 6.6, hematocrit 19.3, platelet count is 21,000, 47% neutrophils, 37% lymphocytes. Sodium 138, potassium 3.2, chloride 105, CO2 is 26, BUN is 17, creatinine 0.91, calcium 8.6, phosphorus 4.2, bilirubin 0.7, AST is 7, ALT is 9, alkaline phosphatase is 124. Serum total protein 6, albumin 3.9, globulin 2.1. COVID negative. Chest x-ray showed no acute findings. ASSESSMENT: 1. Myelodysplastic syndrome/myeloproliferative neoplasm. 2. Neutropenic fever. 3. Pancytopenia. DISCUSSION: The patient was instructed last week to stop taking her anticoag secondary to neutropenia. However, she continued to take until admission. We will hold this for now and hopefully, her count will recover slightly over the next several days. She had a flow cytometry drawn on this admission, which shows a reduction of myeloblasts from 14% to 6%, so clearly she has improved in her bone marrow. She is receiving a blood transfusion today and will likely need a platelet transfusion tomorrow. We will recheck CBC in the morning. Case has been discussed with Dr. Ramirez and we will follow along with her hospitalization. Job ID: [id number]
--- NOTE | 2019-07-10 23:38 | CON ---
DATE OF CONSULTATION: 07/10/2019 REASON FOR CONSULT: Neutropenia and fever. HISTORY OF PRESENT ILLNESS: A 74-year-old with systemic mastocytosis and hypertension and also with myelodysplastic syndrome. The patient is currently on Dacogen and she has had previous episodes of neutropenia. She was found to have temperature elevation of 102 and she was placed on broad-spectrum antimicrobial coverage and admitted. The exam was not particularly remarkable, and imaging studies on admission included an x-ray with stable lung parenchymal opacities, felt to be chronic. She had a bone marrow biopsy done in March 2019 which showed abnormal hypercellular marrow about 70% with increased myeloblasts and multilineage dysplasia. PAST MEDICAL HISTORY: 1. Hyperlipidemia. 2. Hypertension. 3. Mastocytosis. 4. Myelodysplastic syndrome. 5. COPD. PAST SURGICAL HISTORY: 1. Cholecystectomy. 2. Hysterectomy. 3. Tubal ligation. 4. Left knee surgery. FAMILY HISTORY: Noncontributory. SOCIAL HISTORY: Former smoker. smokes, so she has secondhand exposure. No alcoholic beverage use or drug use. CURRENT MEDICATIONS: 1. Tylenol. 2. Zyloprim. 3. Cefepime. 4. Atarax. 5. Synthroid. 6. Remeron. 7. Mometasone. 8. Zyprexa. PHYSICAL EXAMINATION: VITAL SIGNS: She has been afebrile since admission, BP 140/70, pulse 77, respirations 18, and O2 saturation 100. SKIN: Peripheral IV access and does not have a James catheter. She is voiding without problems in the toilet. LYMPH NODES: No lymphadenopathy. HEENT: Ocular movements conjugate. Sclerae white. Pupils are equal. Oral cavity with somewhat atrophic tongue papillae. No lesions in the mucosal surface otherwise. NECK: Supple. No jugular vein distention. LUNGS: Symmetric clear breath sounds. HEART: S1 and S2. Regular rate. ABDOMEN: Soft. Not distended or tender. Evidence of hepatosplenomegaly noted. No bladder distention. EXTREMITIES: No joint inflammatory activity. No edema. Pulses 1+ in dorsalis pedis. Plantar responses are flexor. NEUROLOGIC: Oriented. Follows commands. Pleasant. LABORATORY DATA: White cell count started at 0.9 and now is 0.7, platelets were at 10 and now 21,000. Creatinine is 0.91 which is improved from admission. Liver profile with alkaline phosphatase of 124. Transaminases and bilirubin normal. Calcium 8.6. Albumin 3.9. Urinalysis was normal and COVID-19 not detected. Two sets of blood cultures no growth and urine culture no growth in 48 hours. IMAGING STUDIES: Chest x-ray with chronic parenchymal opacities, but no acute infiltrate. ASSESSMENT: 1. Systemic mastocytosis and myelodysplastic syndrome, on Dacogen. 2. Pancytopenia following chemotherapy with fever, quick resolution after admission on broad-spectrum coverage, thus far blood cultures are negative. DISCUSSION: No focal infection is noted at the moment and she seems to be responding well to therapy as expected. I believe this sort of chemotherapy does not lead to protracted neutropenia, so as soon as her white cell count recovers, she can be discharged probably off antimicrobials or just oral cephalosporin. If fever recurs, then we will have to reassess and consider adding antifungal regimen. Job ID: [id number]
[2019-07-11] MEDS: Sodium Chloride 0.9% 1,000 ML IV SCH ×2 (05:24→20:30)
[2019-07-11] MEDS: Levothyroxine Sodium 25 MCG TAB PO SCH (05:24)
[2019-07-11] MEDS: Mometasone 200 MCG/Formoterol 5 MCG 120 PUFF INHALER INH SCH ×2 (06:20→18:42)
[2019-07-11] MEDS: Cefepime 2 GM in Sodium Chloride 0.9% 100 ML IVPB SCH ×2 (08:49→20:30)
[2019-07-11] MEDS: OLANZapine 2.5 MG TAB PO SCH ×2 (08:50→20:30)
--- NOTE | 2019-07-11 11:04 | PDOC.MOPN ---
Interval History: Pt is feeling much better today w/o significant complaints. Her fatigue is much better, appetite is ok. She wants to go home. Pt admits to taking her Venetoclax until the day she was admitted to the hospital. She was supposed to stop taking it 07/01 when her ANC was discovered to be 0.8 however she continued taking it. - Vital Signs Vital Signs: Vital Signs (12 hours) Temp Pulse Resp BP Pulse Ox 07/11/19 07:26 98.0 F 90 18 156/77 H 95 07/11/19 04:00 97.9 F 07/10/19 23:30 98.3 F Weight Admit Weight 131 lb 3.2 oz Weight 131 lb 3.2 oz - Physical Exam General: Alert, Oriented x3, Cooperative HEENT: EOMI Lungs: Normal air movement Cardiovascular: Regular rate Neurological: Cranial nerves 3-12 NL Psych/Mental Status: Mood NL - Labs Result Diagrams: 07/10/19 16:41 07/10/19 09:40 Lab results: Laboratory Results - last 24 hr 07/10/19 16:41: WBC 1.2 L, RBC 2.79 L, Hgb 8.5 L, Hct 25.1 L, MCV 90.2, MCH 30.5 , MCHC 33.8, RDW 12.8, Plt Count 26 L*, MPV 10.3 07/08/19 18:12: Blood Type B POSITIVE, Ab Screen Tube Method NEGATIVE, Crossmatch See Detail A/P - Problem (1) Myelodysplasia (myelodysplastic syndrome) Current Visit: No Code(s): D46.9 - MYELODYSPLASTIC SYNDROME, UNSPECIFIED Status: Acute (2) Pancytopenia Current Visit: No Code(s): D61.818 - OTHER PANCYTOPENIA Status: Acute - Plan Plan: Pancytopenia 2/2 MDS and treatment Cont antibiotics as per Dr. Guzman until ANC > 1000 Transfusion prn Hb < 7 and Plts < 10 Hold Venetoclax Ok to DC home once ANC > 1000
--- NOTE | 2019-07-11 13:17 | PDOC.HOSPP ---
- Subjective Encounter Date: 07/11/19 Encounter Time: 07:00 Subjective: Pt seen for followup re: neutropenic fever. Feels better. No complaints. - Objective Vital Signs & Weight: Vital Signs (12 hours) Temp Pulse Resp BP BP Pulse Ox 07/11/19 11:07 97.6 F 81 16 148/72 H 95 07/11/19 08:00 95 07/11/19 07:26 98.0 F 90 18 156/77 H 95 07/11/19 04:00 97.9 F Weight Admit Weight 131 lb 3.2 oz Weight 131 lb 3.2 oz I&O: 07/10/19 07/11/19 07/12/19 06:59 06:59 06:59 Intake Total 238 0 Balance 238 0 Result Diagrams: 07/10/19 16:41 07/10/19 09:40 Additional Labs: Labs and MARs reviewed by md Hospitalist ROS - Review of Systems Respiratory: denies: cough, shortness of breath, SOB with excertion, pleuritic pain, wheezing Cardiovascular: denies: chest pain, palpitations, orthopnea, paroxysmal noc. dyspnea, edema, light headedness - Medication Medications: Active Medications Generic Name Dose Route Start Last Admin Trade Name Freq PRN Reason Stop Dose Admin Allopurinol 200 mg 07/09/19 21:00 07/10/19 20:50 Zyloprim PO 200 mg HS ABE Administration Cefepime HCl 2 gm/ Sodium 100 mls @ 200 mls/hr 07/08/19 21:00 07/11/19 08:49 Chloride IVPB 100 mls Q12HR ABE Administration Sodium Chloride 1,000 mls @ 75 mls/hr 07/08/19 18:30 07/11/19 05:24 Normal Saline 0.9% IV 1,000 mls .[id number] ABE Administration Levothyroxine Sodium 25 mcg 07/09/19 06:00 07/11/19 05:24 Synthroid PO 25 mcg 0600 ABE Administration Mirtazapine 30 mg 07/09/19 21:00 07/10/19 20:50 Remeron Soltab PO 30 mg HS ABE Administration Mometasone Furoate/Formoterol Fumar 2 puff 07/09/19 06:30 07/11/19 06:20 Dulera 200 Mcg/5 Mcg Inhaler INH 2 puff BID-RT ABE Administration Olanzapine 1.25 mg 07/09/19 21:00 07/11/19 08:50 Zyprexa PO 1.25 mg BID ABE Administration Pantoprazole Sodium 40 mg 07/09/19 09:00 07/11/19 08:50 Protonix PO 40 mg DAILY ABE Administration - Exam General Appearance: awake alert Eye: anicteric sclera ENT: moist mucosa Neck: supple, symmetric Heart: RRR Respiratory: CTAB Gastrointestinal: soft, non-tender Extremities: 1+ LE edema Psychiatric: normal affect, normal behavior Hosp A/P - Plan - Assessment (1) Neutropenic fever Code(s): D70.9 - NEUTROPENIA, UNSPECIFIED; R50.81 - FEVER PRESENTING WITH CONDITIONS CLASSIFIED ELSEWHERE Status: Acute (2) Pancytopenia Code(s): D61.818 - OTHER PANCYTOPENIA Status: Acute (3) Anemia due to chemotherapy Code(s): D64.81 - ANEMIA DUE TO ANTINEOPLASTIC CHEMOTHERAPY; T45.1X5A - ADVERSE EFFECT OF ANTINEOPLASTIC AND IMMUNOSUP DRUGS, INIT Status: Chronic (4) Myelodysplasia (myelodysplastic syndrome) Code(s): D46.9 - MYELODYSPLASTIC SYNDROME, UNSPECIFIED Status: Chronic (5) Sepsis Code(s): A41.9 - SEPSIS, UNSPECIFIED ORGANISM Status: Resolved - Plan Pt still neutropenic. Continue cefepime. ID/Onc following. COVID 19 negative.
[2019-07-11 13:48] LABS: Hemoglobin 7.6 g/dL (12.0-16.0); Mean Corpuscular HGB CONC 33.2 g/dL (32.0-36.0); Mean Corpuscular Hemoglobin 29.7 pg (27.0-31.0); Mean Corpuscular Volume 89.3 fL (78.0-98.0); Mean Platelet Volume 9.7 fL (7.4-10.4); Platelet Count 20 thou/uL (130-400); RBC Distribution Width 12.9 % (11.5-14.5); Red Blood Cell (RBC) Count 2.54 mill/uL (4.20-5.40); White Blood Cell (WBC) Count 0.8 thou/uL (4.8-10.8)
[2019-07-11 13:59] LABS: Anion Gap 11 mmol/L (10-20); BUN (Urea Nitrogen) 12 mg/dL (9.8-20.1); Calc. Creatinine Clearance 56 mL/min (70-130); Calcium 8.3 mg/dL (7.8-10.44); Carbon Dioxide 25 mmol/L (23-31); Chloride 105 mmol/L (98-107); Estimated GFR-MDRD 69; Glucose 118 mg/dL (83-110); Potassium 3.5 mmol/L (3.5-5.1); Sodium 137 mmol/L (136-145)
[2019-07-11 14:13] LABS: Band 31 % (5-11); Eosinophils 1 % (0-10); Large Platelets SLIGHT; Lymphocytes 48 % (21-51); MDiff Complete? YES; Metamyelocyte 3 % (0-0); Neutrophil 17 % (42-75); Platelet Morphology Comment Appears Decreased
[2019-07-11] MEDS: Mirtazapine 30 MG Soltab PO SCH (20:29)
[2019-07-11] MEDS: Allopurinol 100 MG TAB PO SCH (20:29)
[2019-07-12] MEDS: Levothyroxine Sodium 25 MCG TAB PO SCH (05:27)
[2019-07-12 06:08] LABS: Hemoglobin 7.3 g/dL (12.0-16.0); Mean Corpuscular HGB CONC 33.3 g/dL (32.0-36.0); Mean Corpuscular Hemoglobin 29.6 pg (27.0-31.0); Mean Platelet Volume 10.4 fL (7.4-10.4); Platelet Count 17 thou/uL (130-400); RBC Distribution Width 12.8 % (11.5-14.5); Red Blood Cell (RBC) Count 2.48 mill/uL (4.20-5.40)
[2019-07-12 06:09] LABS: #Eosinphils 0.1 thou/uL (0.0-0.7); #Lymphocytes 0.5 thou/uL (1.20-3.40); #Neutrophils 0.4 thou/uL (1.40-6.50); %Basophils 1.2 % (0.0-1.0); %Eosinophils 6.9 % (0.0-10.0); %Monocytes 2.9 % (0.0-10.0); Platelet Morphology Comment Appears Decreased
[2019-07-12 06:11] LABS: Anion Gap 9 mmol/L (10-20); BUN (Urea Nitrogen) 13 mg/dL (9.8-20.1); Calc. Creatinine Clearance 56 mL/min (70-130); Calcium 8.6 mg/dL (7.8-10.44); Carbon Dioxide 28 mmol/L (23-31); Chloride 104 mmol/L (98-107); Estimated GFR-MDRD 69; Glucose 95 mg/dL (83-110); Potassium 3.4 mmol/L (3.5-5.1); Sodium 138 mmol/L (136-145)
[2019-07-12] MEDS: Mometasone 200 MCG/Formoterol 5 MCG 120 PUFF INHALER INH SCH ×2 (06:30→18:34)
[2019-07-12 08:15] LABS: MDiff Complete? YES
[2019-07-12] MEDS: Cefepime 2 GM in Sodium Chloride 0.9% 100 ML IVPB SCH ×2 (10:07→20:13)
[2019-07-12] MEDS: Sodium Chloride 0.9% 1,000 ML IV SCH ×2 (10:08→17:49)
[2019-07-12] MEDS: OLANZapine 2.5 MG TAB PO SCH ×2 (10:13→20:14)
--- NOTE | 2019-07-12 14:42 | PDOC.MOPN ---
Interval History: Pt feeling ok, just weak. She is eating and drinking ok. She is only walking to the bathroom, encouraged her to try walking around the room. - Vital Signs Vital Signs: Vital Signs (12 hours) Temp Pulse Resp BP Pulse Ox 07/12/19 08:00 96 07/12/19 07:20 97.4 F L 72 16 147/73 H 96 07/12/19 03:52 97.9 F Weight Admit Weight 131 lb 3.2 oz Weight 131 lb 3.2 oz - Physical Exam General: Alert, Oriented x3, Cooperative HEENT: EOMI Lungs: Other (non-labored) Cardiovascular: Regular rate Neurological: Cranial nerves 3-12 NL Psych/Mental Status: Mood NL - Labs Result Diagrams: 07/12/19 05:32 07/12/19 05:32 Lab results: Laboratory Results - last 24 hr 07/12/19 05:32: WBC 1.0 L, RBC 2.48 L, Hgb 7.3 L, Hct 22.0 L, MCV 89.0, MCH 29.6 , MCHC 33.3, RDW 12.8, Plt Count 17 L*, MPV 10.4, Neutrophils % 41.0 L, Neutrophils % (Manual) Not Reportable, Lymphocytes % 48.0, Monocytes % 2.9, Eosinophils % 6.9, Basophils % 1.2 H, Neutrophils # 0.4 L, Lymphocytes # 0.5 L, Monocytes # 0.0 L, Eosinophils # 0.1, Basophils # 0.0, Plt Morphology Comment Appears Decreased L 07/12/19 05:32: Sodium 138, Potassium 3.4 L, Chloride 104, Carbon Dioxide 28, Anion Gap 9 L, BUN 13, Creatinine 0.81, Estimated GFR (MDRD) 69, Glucose 95, Calcium 8.6 A/P - Problem (1) Myelodysplasia (myelodysplastic syndrome) Current Visit: No Code(s): D46.9 - MYELODYSPLASTIC SYNDROME, UNSPECIFIED Status: Acute (2) Pancytopenia Current Visit: No Code(s): D61.818 - OTHER PANCYTOPENIA Status: Acute - Plan Plan: Pancytopenia 2/2 MDS and treatment Cont antibiotics as per Dr. Guzman, consider transitioning to oral tomorrow Transfusion prn Hb < 7 and Plts < 10 Hold Venetoclax Ok to DC home if CBC stable tomorrow: do not expect her WBC to substantially recover given her bone marrow disease so do not need to await ANC recovery to > 1000
--- NOTE | 2019-07-12 16:15 | PDOC.HOSPP ---
- Subjective Encounter Date: 07/12/19 Encounter Time: 07:20 Subjective: Pt seen for followup re: febrile neutropenia. No complaints today. - Objective Vital Signs & Weight: Vital Signs (12 hours) Temp Pulse Resp BP Pulse Ox 07/12/19 08:00 96 07/12/19 07:20 97.4 F L 72 16 147/73 H 96 Weight Admit Weight 131 lb 3.2 oz Weight 131 lb 3.2 oz I&O: 07/11/19 07/12/19 07/13/19 06:59 06:59 06:59 Intake Total 0 1080 Balance 0 1080 Result Diagrams: 07/12/19 05:32 07/12/19 05:32 Additional Labs: Labs and MARs reviewed by nv Hospitalist ROS - Review of Systems Cardiovascular: denies: chest pain, palpitations, orthopnea, paroxysmal noc. dyspnea, edema, light headedness Gastrointestinal: denies: nausea, vomiting, abdominal pain, diarrhea, constipation, melena, hematochezia Genitourinary: denies: dysuria, frequency, incontinence, hematuria, retention - Medication Medications: Active Medications Generic Name Dose Route Start Last Admin Trade Name Freq PRN Reason Stop Dose Admin Allopurinol 200 mg 07/09/19 21:00 07/11/19 20:29 Zyloprim PO 200 mg HS ABE Administration Cefepime HCl 2 gm/ Sodium 100 mls @ 200 mls/hr 07/08/19 21:00 07/12/19 10:07 Chloride IVPB 100 mls Q12HR ABE Administration Sodium Chloride 1,000 mls @ 75 mls/hr 07/08/19 18:30 07/12/19 10:08 Normal Saline 0.9% IV 1,000 mls .[id number] ABE Administration Levothyroxine Sodium 25 mcg 07/09/19 06:00 07/12/19 05:27 Synthroid PO 25 mcg 0600 ABE Administration Mirtazapine 30 mg 07/09/19 21:00 07/11/19 20:29 Remeron Soltab PO 30 mg HS ABE Administration Mometasone Furoate/Formoterol Fumar 2 puff 07/09/19 06:30 07/12/19 06:30 Dulera 200 Mcg/5 Mcg Inhaler INH 2 puff BID-RT ABE Administration Olanzapine 1.25 mg 07/09/19 21:00 07/12/19 10:13 Zyprexa PO 1.25 mg BID ABE Administration Pantoprazole Sodium 40 mg 07/09/19 09:00 07/12/19 10:08 Protonix PO 40 mg DAILY ABE Administration - Exam General Appearance: awake alert Eye: anicteric sclera ENT: normocephalic atraumatic, no oropharyngeal lesions Neck: supple, no lymphadenopathy Heart: RRR Respiratory: CTAB Gastrointestinal: soft, non-tender Extremities: no cyanosis Psychiatric: normal affect, normal behavior Hosp A/P - Plan - Assessment (1) Neutropenic fever Code(s): D70.9 - NEUTROPENIA, UNSPECIFIED; R50.81 - FEVER PRESENTING WITH CONDITIONS CLASSIFIED ELSEWHERE Status: Acute (2) Pancytopenia Code(s): D61.818 - OTHER PANCYTOPENIA Status: Acute (3) Myelodysplasia (myelodysplastic syndrome) Code(s): D46.9 - MYELODYSPLASTIC SYNDROME, UNSPECIFIED Status: Chronic (4) Sepsis Code(s): A41.9 - SEPSIS, UNSPECIFIED ORGANISM Status: Resolved - Plan Switch to oral antibiotics tomorrow. Likely home tomorrow. Continue cefepime for today. ID/Onc following. COVID 19 negative.
[2019-07-12] MEDS: Mirtazapine 30 MG Soltab PO SCH (20:15)
[2019-07-12] MEDS: Allopurinol 100 MG TAB PO SCH (20:15)
[2019-07-13] MEDS: Sodium Chloride 0.9% 1,000 ML IV SCH (02:30)
[2019-07-13] MEDS: Levothyroxine Sodium 25 MCG TAB PO SCH (05:31)
[2019-07-13] MEDS: Mometasone 200 MCG/Formoterol 5 MCG 120 PUFF INHALER INH SCH (06:45)
[2019-07-13 06:55] LABS: Anion Gap 9 mmol/L (10-20); BUN (Urea Nitrogen) 13 mg/dL (9.8-20.1); Calc. Creatinine Clearance 51 mL/min (70-130); Calcium 8.6 mg/dL (7.8-10.44); Carbon Dioxide 28 mmol/L (23-31); Chloride 105 mmol/L (98-107); Estimated GFR-MDRD 62; Glucose 93 mg/dL (83-110); Potassium 3.2 mmol/L (3.5-5.1); Sodium 139 mmol/L (136-145)
[2019-07-13 08:02] LABS: Platelet Count 15 thou/uL (130-400); White Blood Cell (WBC) Count 0.9 thou/uL (4.8-10.8)
[2019-07-13 08:50] LABS: Hemoglobin 6.9 g/dL (12.0-16.0); Mean Corpuscular Hemoglobin 30.4 pg (27.0-31.0); Mean Corpuscular Volume 89.4 fL (78.0-98.0); Mean Platelet Volume 10.7 fL (7.4-10.4); RBC Distribution Width 12.7 % (11.5-14.5); Red Blood Cell (RBC) Count 2.27 mill/uL (4.20-5.40)
[2019-07-13] MEDS: Cefepime 2 GM in Sodium Chloride 0.9% 100 ML IVPB SCH (09:11)
[2019-07-13] MEDS: OLANZapine 2.5 MG TAB PO SCH (09:11)
[2019-07-13 09:42] LABS: MDiff Complete? YES
[2019-07-13 09:43] LABS: Band 18 % (5-11); Eosinophils 4 % (0-10); Lymphocytes 48 % (21-51); Metamyelocyte 2 % (0-0); Neutrophil 20 % (42-75); Platelet Morphology Comment Appears Decreased; Polychromasia SLIGHT = 2-3 cells (100X) (0-2/hpf); Reactive Lymphocytes 8 % (0-10)
[2019-07-13] MEDS: Cefdinir 300 MG CAP PO SCH ×2 (10:18→11:37)
[2019-07-13 12:54] VITALS: BP 140/75; TEMP 97.9
[2019-07-13] MEDS ORDERED: Potassium Chloride 20 MEQ TAB PO SCH (13:30)
--- NOTE | 2019-07-13 16:16 | DIS ---
DATE OF ADMISSION: 07/08/2019 DATE OF DISCHARGE: 07/13/2019 PRIMARY CARE PROVIDER: [facility]. DISCHARGE DIAGNOSES: 1. Sepsis. 2. Neutropenic fever. 3. Pancytopenia, secondary to chemotherapy. 4. Hypokalemia. 5. Hyponatremia. 6. [id number] stage 2 renal failure. CONDITION OF PATIENT ON THE DAY OF DISCHARGE: Stable. I assessed Ms. Quesada on the day of discharge. She denies any chest pain or shortness of breath. Vital signs are stable. S1 and S2 are heard, regular. Lungs are clear to auscultation bilaterally. CONSULTATIONS DURING THIS HOSPITALIZATION: Oncology, Dr. Ramirez and Infectious Diseases, Dr. Guzman. HOSPITAL COURSE: Ms. Quesada is a pleasant 74-year-old lady, who was admitted to [facility] on July 08, 2019 for sepsis secondary to neutropenic fever. She received packed RBC transfusions as well as platelet transfusions. She improved clinically, but her counts stayed low. She has been cleared for discharge by Oncology and Infectious Disease Services. She is being transitioned to Cefdinir for 5 more days. DISCHARGE MEDICATIONS: 1. Hydroxyzine 10 mg every 6 hours as needed. 2. Zofran p.r.n. 3. Allopurinol 200 mg at bedtime. 4. Levothyroxine 50 mcg daily. 5. Mirtazapine 30 mg at bedtime. 6. Procardia XL 15 mg daily. 7. Zyprexa 1.25 mg 2 times daily. 8. Pantoprazole 40 mg daily. 9. Tramadol p.r.n. 10. Triamterene/hydrochlorothiazide 37.5/25 mg daily. 11. Omnicef 300 mg 2 times daily for 5 more days. LABORATORY DATA: On the day of discharge, she has white count of 900, hemoglobin 6.9, for which she is receiving 1 unit packed RBC transfusion, platelet count 15,000. Sodium 139, potassium 3.2, which is being replaced and creatinine 0.89. Many thanks for allowing me to participate in your patient's care. Please feel free to contact me with any questions or concerns. Post acute care followup: With primary care provider in 3 days. ACTIVITY: As tolerated. DIET: Heart healthy. DISCHARGE DESTINATION: Home. TIME SPENT: Total amount of time spent coordinating this discharge: 33 minutes. Job ID: [id number]
[2019-07-13] MEDS ORDERED: Cefdinir 300 MG CAP PO SCH (21:00)
== END 2019-07-13 15:20 | disposition home or self-care (01) | DRG 871 ==
LOC: ERS 16:00 → 2SW 18:23 → ONC 07-09 17:33
PROVIDERS: ADMIT Internal Medicine; ATTEND Internal Medicine
PROC: 30233R1 Transfusion of Nonautologous Platelets into Peripheral Vein, Percutaneous Approach (ICD-10-PCS; principal; 2019-07-08)
PROC: 30233N1 Transfusion of Nonautologous Red Blood Cells into Peripheral Vein, Percutaneous Approach (ICD-10-PCS; 2019-07-08)
PROC: 8E0ZXY6 Isolation (ICD-10-PCS; 2019-07-08)
DX: A41.9 Sepsis, unspecified organism (principal); D61.810 Antineoplastic chemotherapy induced pancytopenia; D47.02 Systemic mastocytosis; N17.9 Acute kidney failure, unspecified; E87.1 Hypo-osmolality and hyponatremia; Z20.828 Contact with and (suspected) exposure to other viral communicable diseases; E78.5 Hyperlipidemia, unspecified; J44.9 Chronic obstructive pulmonary disease, unspecified; F32.9 Major depressive disorder, single episode, unspecified; N18.3 Chronic kidney disease, stage 3 (moderate); D46.9 Myelodysplastic syndrome, unspecified; E03.9 Hypothyroidism, unspecified; I25.10 Atherosclerotic heart disease of native coronary artery without angina pectoris; F03.90 Unspecified dementia, unspecified severity, without behavioral disturbance, psychotic disturbance, mood disturbance, and anxiety; Z77.22 Contact with and (suspected) exposure to environmental tobacco smoke (acute) (chronic); T45.1X5A Adverse effect of antineoplastic and immunosuppressive drugs, initial encounter; I12.9 Hypertensive chronic kidney disease with stage 1 through stage 4 chronic kidney disease, or unspecified chronic kidney disease; E87.6 Hypokalemia; Z79.899 Other long term (current) drug therapy; Z87.891 Personal history of nicotine dependence; Z79.890 Hormone replacement therapy; Z90.49 Acquired absence of other specified parts of digestive tract; Z90.710 Acquired absence of both cervix and uterus; Z98.51 Tubal ligation status; Z85.828 Personal history of other malignant neoplasm of skin; Z92.3 Personal history of irradiation; Z92.21 Personal history of antineoplastic chemotherapy; Z88.0 Allergy status to penicillin; Z88.8 Allergy status to other drugs, medicaments and biological substances; Z91.041 Radiographic dye allergy status
CPT/HCPCS: 36415; 36430; 51701; 71045; 80048; 80053; 81003; 81015; 83605; 85025; 86850; 86900; 86901; 87040; 87086; 87635; 88184; 93005; 96361; 96365; A4353; J0692; J1642; J2543; J3370; J3490; P9016; P9035; U0003

== ENCOUNTER 2019-07-21 12:39 | Observation (INO) | payer MEDICARE ==
[2019-07-21 14:03] LABS: Hemoglobin 8.8 g/dL (12.0-16.0); Mean Corpuscular Hemoglobin 30.8 pg (27.0-31.0); Mean Platelet Volume 11.8 fL (7.4-10.4); Platelet Count 18 thou/uL (130-400); RBC Distribution Width 12.5 % (11.5-14.5); Red Blood Cell (RBC) Count 2.85 mill/uL (4.20-5.40); White Blood Cell (WBC) Count 5.4 thou/uL (4.8-10.8)
[2019-07-21 14:09] LABS: PTT 27.6 sec (22.9-36.1); Prothrombin Time 13.5 sec (12.0-14.7)
--- NOTE | 2019-07-21 14:13 | CT ---
CT OF BRAIN WITHOUT CONTRAST: Date: 07/21/2019 INDICATION: History of generalized weakness for 2 weeks. COMPARISON: Prior CT of the brain dated 01/23/2019. FINDINGS: No acute infarct, hemorrhage, or hydrocephalus is evident. The moderate to severe chronic small vesse l white matter ischemic change is stable. Small remote lacunar infarct involving the superior right c erebellum is stable. Generalized cerebral and cerebellar atrophy is stable. Mastoid air cells and par anasal sinuses are clear. Skull intact. IMPRESSION: No acute intracranial abnormality. POS: BH
[2019-07-21 14:29] LABS: ALT (SGPT) 24 U/L (8-55); AST (SGOT) 18 U/L (5-34); Albumin 3.8 g/dL (3.4-4.8); Alkaline Phosphatase 91 U/L (40-110); Anion Gap 13 mmol/L (10-20); BUN (Urea Nitrogen) 21 mg/dL (9.8-20.1); Bilirubin, Total 0.4 mg/dL (0.2-1.2); CK (CPK) 23 U/L (29-168); Calc. Creatinine Clearance 0 mL/min (70-130); Calcium 11.7 mg/dL (7.8-10.44); Carbon Dioxide 33 mmol/L (23-31); Chloride 95 mmol/L (98-107); Estimated GFR-MDRD 37; Globulin 1.8 g/dL (2.4-3.5); Glucose 101 mg/dL (83-110); Magnesium 1.5 mg/dL (1.6-2.6); Potassium 3.5 mmol/L (3.5-5.1); Protein, Total 5.6 g/dL (6.0-8.3); Sodium 137 mmol/L (136-145)
[2019-07-21 14:38] LABS: Band 4 % (5-11); Differential Comment Blast-Like Cell(s); Eosinophils 43 % (0-10); Lymphocytes 17 % (21-51); MDiff Complete? YES; Monocytes 8 % (0-10); Neutrophil 21 % (42-75); Ovalocytes SLIGHT = 2-5 cells (100X) (0-1/hpf); Platelet Morphology Comment Appears Decreased; Polychromasia SLIGHT = 2-3 cells (100X) (0-2/hpf); Reflex for Review?? YES
--- NOTE | 2019-07-21 14:43 | RAD ---
PORTABLE CHEST: Date: 07/21/2019 HISTORY: Weakness. COMPARISON: 07/08/2019. FINDINGS: Lungs remain well aerated and clear of infiltrate. Mild interstitial prominence is stable. Vasculatur e within normal range. A PICC line via the right upper extremity overlies the SVC and is unchanged in position. IMPRESSION: No acute process or interval change apparent. POS: AH
[2019-07-21 15:14] LABS: Bilirubin Negative (Negative); Blood, Urine Negative (Negative); Clarity Clear (Clear); Glucose, Urine (Dipstick) Normal (Negative); Leukocyte Negative Leu/uL (Negative); Nitrite Negative (Negative); Protein, Urine (Dipstick) Negative (Neg-Trace); Urobilinogen Normal mg/dL (Less than 2)
[2019-07-21] MEDS ORDERED: Magnesium 2 GM/50 ML BAG (IN WATER) ONE (15:18)
[2019-07-21] MEDS ORDERED: Vancomycin 1 GM/200 ML BAG ONE (16:06)
[2019-07-21] MEDS ORDERED: Acetaminophen 325 MG TAB PO PRN ×2 (16:25→19:42)
[2019-07-21] MEDS ORDERED: Sodium Chloride 0.9% 1,000 ML IV SCH (16:30)
[2019-07-21] MEDS ORDERED: traMADol HCl 50 MG TAB PO PRN ×2 (16:32→19:42)
--- NOTE | 2019-07-21 16:45 | PDOC.HHP ---
Hospitalist HPI - History of Present Illness Profound weakness History of Present Illness: This patient is a 74-year-old female with a history of myelodysplastic syndrome. She was recently admitted to the hospital with what appeared to be a neutropenic fever following chemotherapy treatment. The patient was discharged with an additional 5 days of IV antibiotics to be continued as an outpatient. The patient subsequently has not had any significant recovery. They report that 8 to 9 months ago she was admitted in [place] and was there for period of time since then she has had some generalized weakness. However, since her most recent admission here the patient has not been able to even get up with the walker as she had before. reports that he has to literally pick her up and move her from bed to chair or to a chair to bed. She is so profoundly weak that she is having difficulty even chewing her food. He states that she will start to chew but then start to have things fall out of her mouth because she is too fatigued to continue to chew and swallow it. She has been able to drink fluids and those have gone better. She continues to have some intake and normal bowel movements and voiding. She denies any significant aspiration issues. She denies any fevers at this time. She is not aware of any particular lateralization of the weakness. Appears to be more global. They have a [id number] who is a [employer]. She thought the patient may have some facial droop that was unilateral. ED Course: In the emergency department the patient had IV antibiotics and fluids started after a conversation between the ER physician and the patient's oncologist Dr. Ramirez. Hospitalist History - Past Medical History Source: patient Cardiac: reports: CAD, HTN, Hyperlipidemia Pulmonary: reports: COPD - Past Surgical History Past Surgical History: reports: Cholecystectomy, Hysterectomy, Tubal Ligation Other Surgical History: Left knee surgery - Family History Family History: reports: cancer (Uncle) - Social History Smoking Status: Former smoker Alcohol: reports: None Drugs: reports: none Living Situation: With Family Other Social History: Patient is currently a full code and her would be her surrogate decision maker should that be necessary. - Exam General Appearance: NAD, awake alert Heart: RRR, no gallops, no rubs, normal peripheral pulses, murmur present Respiratory: CTAB, no wheezes, no rales, no ronchi, normal chest expansion, no tachypnea, normal percussion Gastrointestinal: soft, non-tender, non-distended, normal bowel sounds, no palpable masses, no hepatomegaly, no splenomegaly, no bruit Extremities: 1+ LE edema (Nonpitting) Skin: normal turgor Neurological: no focal deficits Neurological - other findings: Normal cognition. Generalized weakness. Does not localize Musculoskeletal: generalized weakness Psychiatric: normal affect, normal behavior, A&O x 3 Hospitalist Results - Labs Result Diagrams: 07/21/19 13:42 07/21/19 13:43 Lab results: WBC 5.4 thou/uL (4.8-10.8) 07/21/19 13:42 Hgb 8.8 g/dL (12.0-16.0) L 07/21/19 13:42 Hct 25.1 % (36.0-47.0) L 07/21/19 13:42 MCV 88.0 fL (78.0-98.0) 07/21/19 13:42 Plt Count 18 thou/uL (130-400) L* 07/21/19 13:42 Band Neuts % (Manual) 4 % (5-11) L 07/21/19 13:42 Sodium 137 mmol/L (136-145) 07/21/19 13:43 Potassium 3.5 mmol/L (3.5-5.1) 07/21/19 13:43 Chloride 95 mmol/L (98-107) L 07/21/19 13:43 Carbon Dioxide 33 mmol/L (23-31) H 07/21/19 13:43 BUN 21 mg/dL (9.8-20.1) H 07/21/19 13:43 Creatinine 1.37 mg/dL (0.6-1.1) H 07/21/19 13:43 Glucose 101 mg/dL (83-110) 07/21/19 13:43 Lactic Acid 0.4 mmol/L (0.5-2.2) L 07/21/19 13:43 Calcium 11.7 mg/dL (7.8-10.44) H 07/21/19 13:43 Total Bilirubin 0.4 mg/dL (0.2-1.2) 07/21/19 13:43 AST 18 U/L (5-34) 07/21/19 13:43 ALT 24 U/L (8-55) 07/21/19 13:43 Alkaline Phosphatase 91 U/L (40-110) 07/21/19 13:43 Creatine Kinase 23 U/L (29-168) L 07/21/19 13:43 Troponin I 0.013 ng/mL (< 0.028) 07/21/19 13:43 Serum Total Protein 5.6 g/dL (6.0-8.3) L 07/21/19 13:43 Albumin 3.8 g/dL (3.4-4.8) 07/21/19 13:43 Urine Ketones Negative mg/dL (Negative) 07/21/19 14:55 Urine Blood Negative (Negative) 07/21/19 14:55 Urine Nitrite Negative (Negative) 07/21/19 14:55 Ur Leukocyte Esterase Negative [place]/uL (Negative) 07/21/19 14:55 Hospitalist H&P A/P - Problem (1) Failure to thrive Code(s): [id number] - Status: Acute (2) Acute worsening of stage 3 chronic kidney disease Code(s): N18.3 - CHRONIC KIDNEY DISEASE, STAGE 3 (MODERATE) Status: Acute (3) Hypertension Code(s): I10 - ESSENTIAL (PRIMARY) HYPERTENSION Status: Acute (4) Peripheral edema Code(s): R60.9 - EDEMA, UNSPECIFIED Status: Acute (5) Heart murmur Code(s): R01.1 - CARDIAC MURMUR, UNSPECIFIED Status: Acute (6) History of leukemia Code(s): Z85.6 - PERSONAL HISTORY OF LEUKEMIA Status: Acute (7) Myelodysplasia (myelodysplastic syndrome) Code(s): D46.9 - MYELODYSPLASTIC SYNDROME, UNSPECIFIED Status: Acute - Plan Plan: Generalized weakness: This may be due to the patient's underlying myelodysplastic syndrome and chemotherapy regimen. Per the recommendations of Dr. Ramirez the patient will be placed in the hospital with IV fluids and IV antibiotics. We will keep her in observation status for now. We will get a check a phosphorus level cholinesterase antibodies for possible myasthenia gravis. She does not appear to have any localizations presently but that has been a concern by family members. We will get an MRI of the brain. Myelodysplastic syndrome: Dr. Ramirez is aware of the patient's admission. Giving fluids and IV antibiotics per his recommendations. Her counts are tolerable at the moment. Will consult oncology to follow. Acute on chronic kidney disease: Patient's GFR is in the 30s typically running closer to the 50s. Will give IV fluids and continue to monitor. Heart murmur: Consistent with mitral stenosis. Obtain echocardiogram. Peripheral edema: Nonpitting. Appears to be chronic and benign. May be worse by the use of nifedipine. No evidence of DVT. History of CLL: Per oncology. History of coronary artery disease: Stable.
[2019-07-21] MEDS ORDERED: Cefepime 1 GM in Sodium Chloride 0.9% 100 ML IVPB SCH (17:00)
[2019-07-21 19:17] LABS: Phosphorus 4.6 mg/dL (2.3-4.7)
[2019-07-21] MEDS: Cefepime 1 GM in Sodium Chloride 0.9% 100 ML IVPB SCH (20:14)
[2019-07-21] MEDS: Sodium Chloride 0.9% 1,000 ML IV SCH (20:14)
[2019-07-22 08:19] LABS: Hemoglobin 7.6 g/dL (12.0-16.0); Mean Corpuscular HGB CONC 33.7 g/dL (32.0-36.0); Mean Corpuscular Volume 89.1 fL (78.0-98.0); Mean Platelet Volume 13.2 fL (7.4-10.4); Platelet Count 15 thou/uL (130-400); RBC Distribution Width 12.5 % (11.5-14.5); Red Blood Cell (RBC) Count 2.53 mill/uL (4.20-5.40); White Blood Cell (WBC) Count 4.6 thou/uL (4.8-10.8)
[2019-07-22 08:41] LABS: ALT (SGPT) 27 U/L (8-55); AST (SGOT) 18 U/L (5-34); Albumin 3.3 g/dL (3.4-4.8); Alkaline Phosphatase 79 U/L (40-110); Anion Gap 11 mmol/L (10-20); BUN (Urea Nitrogen) 17 mg/dL (9.8-20.1); Bilirubin, Total 0.4 mg/dL (0.2-1.2); Calc. Creatinine Clearance 39 mL/min (70-130); Calcium 10.3 mg/dL (7.8-10.44); Carbon Dioxide 32 mmol/L (23-31); Chloride 98 mmol/L (98-107); Estimated GFR-MDRD 45; Globulin 1.4 g/dL (2.4-3.5); Glucose 91 mg/dL (83-110); Potassium 3.5 mmol/L (3.5-5.1); Protein, Total 4.7 g/dL (6.0-8.3); Sodium 137 mmol/L (136-145)
[2019-07-22] MEDS: Cefepime 1 GM in Sodium Chloride 0.9% 100 ML IVPB SCH ×2 (08:47→19:33)
[2019-07-22] MEDS: Sodium Chloride 0.9% 1,000 ML IV SCH ×2 (08:48→23:08)
[2019-07-22] MEDS: Pantoprazole 40 MG VIAL IVP SCH (08:48)
[2019-07-22 08:50] LABS: Band 3 % (5-11); Blast 10 % (0-0); Eosinophils 49 % (0-10); Lymphocytes 20 % (21-51); MDiff Complete? YES; Monocytes 6 % (0-10); Myelocyte 2 % (0-0); Neutrophil 10 % (42-75); Platelet Morphology Comment Appears Decreased; Polychromasia SLIGHT = 2-3 cells (100X) (0-2/hpf)
[2019-07-22] MEDS ORDERED: Pantoprazole 40 MG VIAL IVP SCH (09:00)
[2019-07-22] MEDS ORDERED: NIFEdipine XL 30 MG TAB PO SCH (09:00)
[2019-07-22] MEDS: NIFEdipine XL 30 MG TAB PO SCH (09:07)
--- NOTE | 2019-07-22 15:52 | CON ---
DATE OF CONSULTATION: REASON FOR CONSULTATION: Myeloproliferative neoplasm. HISTORY OF PRESENT ILLNESS: Ms. Quesada is a 74-year-old female with systemic mastocytosis, myelodysplastic syndrome, and myeloproliferative neoplasm, who has been getting treatment with venetoclax and Dacogen. She was admitted in late June for neutropenic fever. She finished a course of antibiotics and was sent home. She has been in our clinic for the last two days with IV fluids as the patient has not eaten in over five days. She has also had hypercalcemia, which we treated with Zometa in the clinic. She has received IV fluids this past Saturday and Saturday. Yesterday, she came to the clinic, was unable to stand and had severe weakness. The conversation of hospice was initiated, but the was resistant. The patient had to come to the emergency room for further treatment. She was admitted, started on IV fluids. She had a brain CT, which showed no acute abnormality. She had a chest x-ray, which was stable. Her CBC on admission showed a white count of 5.4, hemoglobin of 8.8, and a platelet count of 18,000. She had 5% blasts on her differential and 43% eosinophils. She has been off venetoclax since the prior hospitalization. The patient was seen at bedside today with her present. PAST MEDICAL HISTORY: 1. Systemic mastocytosis. 2. Myelofibrosis. 3. Hypertension. 4. COPD. 5. Hypothyroidism. 6. Coronary artery disease. 7. Hyperlipidemia. 8. Dementia. PAST SURGICAL HISTORY: 1. Cholecystectomy. 2. Bone marrow biopsies. 3. Hysterectomy. ALLERGIES: TO ASPIRIN, IODINE, AND PENICILLIN. HOME MEDICATIONS: 1. Allopurinol. 2. Hydroxyzine. 3. Mirtazapine. 4. Levothyroxine. 5. Nifedipine. 6. Olanzapine. 7. Protonix. 8. Remeron. 9. Tramadol. 10. Valacyclovir. FAMILY HISTORY: Unknown history of cancer in her grandma. SOCIAL HISTORY: , has 2 children. Lives with her spouse. REVIEW OF SYSTEMS: A 10-point review of systems deferred secondary to lethargy and weakness. PHYSICAL EXAMINATION: VITAL SIGNS: Temperature is 98.4, pulse is 77, respiratory rate is 16, blood pressure is 167/79. She is 98% on 2 L. GENERAL: This is a chronically ill-appearing, frail female, in no acute distress. HEENT: Normocephalic, atraumatic. NECK: Supple. CV: Regular rate and rhythm. LUNGS: Clear anterior. ABDOMEN: Soft. NEUROLOGIC: Nonfocal. PERTINENT LABS AND X-RAYS: Current WBCs 4.6, hemoglobin 7.6, platelet count 15,000. She has 10% neutrophils, 3% bands, 20% monocytes, and 49% eosinophils. Sodium 137, potassium 3.5, chloride 98, CO2 is 32, BUN is 17, creatinine 1.17, calcium 10.3, bilirubin 0.4, AST is 18, ALT is 27, alkaline phosphatase is 79. Serum total protein is 4.7, albumin 3.3, globulin 1.4. Radiology per HPI. ASSESSMENT: 1. Myelodysplastic syndrome. 2. Failure to thrive. DISCUSSION: Case has been discussed with Dr. Ramirez. The patient has been in our office for the past two days due to no appetite and dehydration. was at bedside. We again had a discussion about goals of care and advanced directives. He states that the patient has explicitly stated that she does not want a feeding tube and would like to at home. I discussed with that there is likely no chance of improvement in her condition without nutrition and recommended that we initiate hospice and focus on comfort and quality. He did agree, and rn case mgr has been consulted for their assistance. The patient is on palliative care with [facility] and can be transitioned over to hospice and home when all equipment has been set up. I have discussed this case with Dr. Childress. Thank you for the consult. Job ID: [id number]
--- NOTE | 2019-07-22 17:46 | PDOC.HOSPP ---
- Subjective Encounter Date: 07/22/19 Subjective: Patient continues to be profoundly weak. - Objective Vital Signs & Weight: Vital Signs (12 hours) Temp Pulse Resp BP BP Pulse Ox 07/22/19 16:00 99 F 85 18 142/74 H 142/74 H 97 07/22/19 12:00 97.4 F L 82 16 149/75 H 149/75 H 100 07/22/19 09:07 77 167/79 H 07/22/19 08:00 98.4 F 71 16 140/80 140/80 98 Weight Admit Weight 134 lb 12.8 oz Weight 134 lb I&O: 07/21/19 07/22/19 07/23/19 06:59 06:59 06:59 Intake Total 100 Balance 100 Result Diagrams: 07/22/19 08:03 07/22/19 08:03 Hospitalist ROS - Medication Medications: Active Medications Generic Name Dose Route Start Last Admin Trade Name Freq PRN Reason Stop Dose Admin Sodium Chloride 1,000 mls @ 75 mls/hr 07/21/19 19:45 07/22/19 08:48 Normal Saline 0.9% IV 1,000 mls .[id number] ABE Administration Cefepime HCl 1 gm/ Sodium 100 mls @ 200 mls/hr 07/21/19 20:00 07/22/19 08:47 Chloride IVPB 100 mls 0800,2000 ABE Administration Nifedipine 30 mg 07/22/19 09:00 07/22/19 09:07 Procardia Xl PO Not Given DAILY ABE Pantoprazole Sodium 40 mg 07/22/19 09:00 07/22/19 08:48 Protonix IVP 40 mg DAILY ABE Administration - Exam General Appearance: NAD, awake alert General - other findings: Very weak. Heart: RRR, no murmur, no gallops, no rubs, normal peripheral pulses Respiratory: CTAB, no wheezes, no rales, no ronchi, normal chest expansion, no tachypnea, normal percussion Gastrointestinal: soft, non-tender, non-distended, normal bowel sounds, no palpable masses, no hepatomegaly, no splenomegaly, no bruit Extremities: no cyanosis, no clubbing, no edema Skin: normal turgor Musculoskeletal: generalized weakness Psychiatric: normal affect Hosp A/P (1) Myelodysplasia (myelodysplastic syndrome) Code(s): D46.9 - MYELODYSPLASTIC SYNDROME, UNSPECIFIED Status: Acute (2) Failure to thrive Code(s): [id number] - Status: Acute (3) Acute worsening of stage 3 chronic kidney disease Code(s): N18.3 - CHRONIC KIDNEY DISEASE, STAGE 3 (MODERATE) Status: Acute (4) Hypertension Code(s): I10 - ESSENTIAL (PRIMARY) HYPERTENSION Status: Acute (5) Peripheral edema Code(s): R60.9 - EDEMA, UNSPECIFIED Status: Acute (6) Heart murmur Code(s): R01.1 - CARDIAC MURMUR, UNSPECIFIED Status: Acute (7) History of leukemia Code(s): Z85.6 - PERSONAL HISTORY OF LEUKEMIA Status: Acute - Plan Prior to my visit with the patient the patient was seen by the oncology service. After their discussion the decision was made to move the patient home on hospice. Discussed this with the patient and her in the room. He was concerned that she did not fully understand. She made it clear to him that she did understand and became a bit tearful during the conversation. Case management is aware. We will anticipate moving her to home on hospice tomorrow once everything has been arranged in her home.
[2019-07-22 19:26] VITALS: BMI 23.9
[2019-07-23] MEDS: NIFEdipine XL 30 MG TAB PO SCH (08:29)
[2019-07-23] MEDS: Cefepime 1 GM in Sodium Chloride 0.9% 100 ML IVPB SCH (08:29)
[2019-07-23] MEDS: Pantoprazole 40 MG VIAL IVP SCH (08:30)
[2019-07-23 08:43] VITALS: BP 160/88; TEMP 98.1
[2019-07-23] MEDS: Sodium Chloride 0.9% 1,000 ML IV SCH (10:59)
--- NOTE | 2019-07-24 01:15 | DIS ---
DATE OF ADMISSION: 07/21/2019 DATE OF DISCHARGE: 07/23/2019 DISCHARGE DIAGNOSES: 1. Severe myelodysplastic syndrome with transfusion dependence. 2. Failure to thrive. 3. Profound debility. HISTORY OF PRESENT ILLNESS: This patient is a 74-year-old female, who is followed by the Oncology Clinic for history of CLL and advanced transfusion-dependent myelodysplastic syndrome. The patient had recently been in the hospital with febrile illness been treated and sent home. However, she never fully recovered her strength after that episode and has continued to have progressive weakness at home. The patient was so weak, she was unable to stand or even to adequately chew her food. She subsequently presented to the emergency department. Dr. Ramirez was called from the emergency department and recommended admission for IV fluids and antibiotics. HOSPITAL COURSE: The patient was admitted and started on IV fluids and antibiotics. Her labs were notable for hemoglobin of 8.8 and a platelet count of 18,000. GFR was 37. The patient was seen by Speech Therapy and they recommended pureed consistency foods and that change was made. Andra Reese saw the patient in consultation from the Oncology Clinic, had a conversation with the patient and her regarding goals of care and ultimately they made the decision to return home with hospice. With that in mind, the patient was discharged the following morning after things have been arranged for her at home for hospice care. DISCHARGE EXAMINATION: VITAL SIGNS: At time of discharge, temperature was 98.1 , pulse 87, respirations 16, O2 saturation 93% on room air, BP was 160/88. GENERAL: She was pale, frail, awake and alert, hypophonic. HEART: Regular rate and rhythm with no murmurs, gallops, or rubs. LUNGS: Clear. ABDOMEN: Benign. DISPOSITION: The patient is discharged to home on home health. She is on a pureed diet with no other restrictions. Activity as tolerated. MEDICATIONS: Include: 1. Levothyroxine 50 mcg daily. 2. Nifedipine XL 0.5 tablets p.o. daily. 3. Zofran 8 mg q.8 hours p.r.n. 4. Tramadol 50 mg b.i.d. p.r.n. 5. Zyprexa 0.5 mg b.i.d. or half tablet p.o. b.i.d. 6. Pantoprazole 40 mg daily. 7. Mirtazapine 30 mg at bedtime. 8. Allopurinol 2 at bedtime. 9. Hydroxyzine p.r.n. 10. Triamterene HCTZ 37.5/25 one p.o. daily. 11. Omnicef 300 mg b.i.d. continued from previous admission. Again, she will be discharged home with [facility] and should she have followup, it will be at [facility]. She can return to the hospital at anytime she has the need to do so. TIME SPENT: Total time in discharge activities was greater than 35 minutes. Job ID: [id number] [facility]PITAL[facility]anda
--- NOTE | 2019-07-25 14:10 | EKG ---
Test Reason : Blood Pressure : / mmHG Vent. Rate : 069 BPM Atrial Rate : 069 BPM P-R Int : 130 ms QRS Dur : 098 ms QT Int : 392 ms P-R-T Axes : 067 -58 047 degrees QTc Int : 420 ms Normal sinus rhythm Possible Left atrial enlargement Left anterior fascicular block Abnormal ECG Confirmed by ALINE JAEGER DO ([id number]), medical transcription editor RAMSES LOCKE ([id number]) on 07/25/2019 2:10:08 PM Referred By: Confirmed By:ALINE JAEGER DO
== END 2019-07-23 15:30 | disposition hospice, home (50) ==
LOC: ERS 12:39 → ONC 16:00 → INTOOBSV 16:00 → ERS 16:57
PROVIDERS: ADMIT Internal Medicine; ATTEND Internal Medicine
DX: D46.9 Myelodysplastic syndrome, unspecified (principal); R53.81 Other malaise; D47.02 Systemic mastocytosis; I25.10 Atherosclerotic heart disease of native coronary artery without angina pectoris; E78.5 Hyperlipidemia, unspecified; J44.9 Chronic obstructive pulmonary disease, unspecified; I12.9 Hypertensive chronic kidney disease with stage 1 through stage 4 chronic kidney disease, or unspecified chronic kidney disease; N18.3 Chronic kidney disease, stage 3 (moderate); N17.9 Acute kidney failure, unspecified; R01.1 Cardiac murmur, unspecified; E03.9 Hypothyroidism, unspecified; F03.90 Unspecified dementia, unspecified severity, without behavioral disturbance, psychotic disturbance, mood disturbance, and anxiety; F32.9 Major depressive disorder, single episode, unspecified; R62.7 Adult failure to thrive; Z68.23 Body mass index [BMI] 23.0-23.9, adult; Z85.6 Personal history of leukemia; Z87.891 Personal history of nicotine dependence; Z79.2 Long term (current) use of antibiotics; Z79.899 Other long term (current) drug therapy; Z88.0 Allergy status to penicillin; Z88.6 Allergy status to analgesic agent; Z91.041 Radiographic dye allergy status; Z95.5 Presence of coronary angioplasty implant and graft
CPT/HCPCS: 51701; 70450; 71045; 80048; 80053; 81003; 82550; 83519; 83605; 83735; 84100; 84484; 85025; 85610; 85730; 87086; 93005; 96361; 96365; 96367; 96375 ×2; 96376 ×2; 97139 ×2; 99285; G0378 ×4; 36415; 84443; 85060; C9113; J0692; J3370; J3475; J3490